=== PATIENT | male | born 1935 | race Caucasian/White ===

== ENCOUNTER → 2023-05-22 12:49 | Outpatient (REF) | payer MEDICARE, OTHER, SELFPAY | LOC: HWRCS 12:49 | PROVIDERS: ATTENDING PHYSICIAN Nuclear Medicine Nuclear Cardiology; FAMILY PHYSICIAN Internal Medicine | DX: I48.0 Paroxysmal atrial fibrillation (principal); I25.2 Old myocardial infarction; I42.8 Other cardiomyopathies | CPT/HCPCS: 93306 ==

== ENCOUNTER 2023-08-25 18:37 | Inpatient (IN) | payer OTHER, SELFPAY ==
[2023-08-25 14:41] VITALS: BP 145/82
[2023-08-25 15:16] VITALS: BP 133/65
[2023-08-25 15:44] LABS: % Basophils 0.4 % (0-2); % Eosinophils 1.5 % (0-6); % Immature Granulocytes 0.4 % (0-0.5); % Lymphocytes 8.6 % (20.5-51.1); % Monocytes 12.3 % (1.7-9.3); % Neutrophils 76.8 % (42.2-75.2); Absolute Eosinophils 0.1 10^3/uL (0-0.7); Absolute Lymphocytes 0.6 10^3/uL (1.2-3.4); Absolute Monocytes 0.9 10^3/uL (0.1-0.6); Absolute Neutrophils 5.5 10^3/uL (1.4-6.5); Hematocrit 38.9 % (39.0-52.0); Hemoglobin 13.8 g/dL (13.0-18.0); Mean Corp Hgb Conc. 35.5 g/dL (33.0-37.0); Mean Corpuscular Hgb 32.5 pg (27.0-31.0); Mean Corpuscular Volume 91.7 fL (80.0-94.0); Mean Platelet Volume 9.3 fL (7.4-10.4); Nucleated Red Blood Cells % 0 % (-); Platelet Count 253 10^3/uL (130-400); Red Blood Cell Count 4.24 10^6/uL (4.70-6.10); Red Cell Dist. Width 14.5 % (11.5-14.5); White Blood Cell Count 7.2 10^3/uL (4.8-10.8)
[2023-08-25 16:03] VITALS: BP 141/78
[2023-08-25 16:03] LABS: ALT (SGPT) 28 U/L (0-50); AST (SGOT) 37 U/L (17-59); Alkaline Phosphatase 72 U/L (38-126); Blood Urea Nitrogen 9 mg/dl (9-20); Calcium 9.8 mg/dl (8.4-10.2); Carbon Dioxide 29 mmol/L (22-30); Chloride 94 mmol/L (98-107); Glucose 97 mg/dl (70-99); Potassium 4.7 mmol/L (3.5-5.1); Sodium 130 mmol/L (135-145); Total Bilirubin 1.1 mg/dl (0.2-1.3); Total Protein 6.5 g/dl (6.3-8.2); eGFR > 60.00
--- NOTE | 2023-08-25 16:54 | ED.GENMED ---
History of Present Illness
General
Chief Complaint: Fall
Source: patient, records and spouse
Exam Limitations: none
Time Seen by Provider: 08/25/23 15:18
Nursing documentation reviewed up to this point in time: agreed with
History of Present Illness
History of Present Illness:
Patient 87-year-old male who presents to the emergency department with a inability to walk since he fell approximately 6 days ago and then fell again 2 days ago. Patient was found on the floor 2 days ago. Patient did strike his head but did does
not remember if he had a loss of consciousness. Patient denies syncope. Patient is able to stand with assistance but is unable to walk. Patient denies fever or chills. Patient admits to swelling and redness of his lower extremities which is new.
Patient denies any chest pain, shortness of breath or palpitations. Patient denies any GI or symptoms.
Past History
Past History
ED Past Medical History: COPD, GERD, [place] and Other (PNA)
ED Past Surgical History: Other (Hernia)
Social History
Tobacco: Smoker
Alcohol: Occasional
Drug: None
Personal:
Living: with family
Employment: Retired
Review of Systems
Review of Systems
All Other Systems: ROS reviewed and negative except as documented in HPI and ROS
Constitutional: Reports fatigue; Denies fever or chills
EENT: Reports no symptoms
Respiratory: Reports no symptoms
Cardiac: Reports no symptoms
ABD/GI: Reports no symptoms
: Reports no symptoms
Musculoskeletal: Reports joint pain (Left hip pain)
Skin: Reports other (Redness of the lower legs bilaterally)
Neurological: Reports no symptoms
Hematologic/Lymphatic: Reports no symptoms
Phy Exam
Physical Exam
Physical Exam:
Physical Exam
General: No apparent distress, alert and appropriate, well nourished, well hydrated
HENT: Normocephalic and nontender, supple with no lymphadenopathy, no thyromegaly
Eyes: Clear sclera, conjuctiva without injection
Heart: Regular rhythm and rate. No S3, S4. No murmur. No NVD
Lungs: No respiratory distress, no stridor, lung sounds clear and equal bilaterally, chest wall symmetrical and nontender
Abdomen: Soft, nontender, no organomegaly, no CVA tenderness, BS good
Neuro: Alert and oriented x 3, CN II - XII intact, no motor focality
Skin: Patient has extensive nail fungus, erythema of the lower legs
Psychiatric: well kept. interactive and cooperative
Extremities: No cyanosis. Erythema of the lower legs from mid calf down bilaterally with +1-2 pitting edema. Patient has significant onychomycosis on both feet. Tenderness about the left hip that increases with range of
motion
Musculoskeletal: Mild diffuse cervical spine tenderness. Noes thoracic or lumbar spine tenderness
Course
Orders/Labs/Results
Orders:
Orders
08/25/23 14:46
CT Head W/o Iv Contrast Urgent
Comment:
Reason For Exam: head inury on Xarelto
08/25/23 14:47
EKG [Electrocardiogram (*1)] Urgent
Reason for Study: Shortness of Breath
08/25/23 14:48
EKG- Treatment ONCE
08/25/23 15:33
CBC/With Diff [Complete Blood Count/With Diff] Urgent
CMP [Comprehensive Metabolic Panel] Urgent
08/25/23 15:40
CT Cervical Spine W/o Iv Contr Urgent
Comment:
Reason For Exam: fall tender c spine
Thiamine Injection 100 mg IV NOW STA
Hip, Left 2-3 Views [CR Hip - LT w/wo Pel 2-3 Vw*] Urgent
Comment:
Reason For Exam: fell with tender
Include a pelvis x-ray?: Yes
Abnormal Lab Results
08/25/23
15:33
RBC 4.24 L 10^6/uL
(4.70-6.10)
Hct 38.9 L %
(39.0-52.0)
MCH 32.5 H pg
(27.0-31.0)
Absolute Lymphs (auto) 0.6 L 10^3/uL
(1.2-3.4)
Absolute Monos (auto) 0.9 H 10^3/uL
(0.1-0.6)
Neutrophils % 76.8 H %
(42.2-75.2)
Lymphocytes % 8.6 L %
(20.5-51.1)
Monocytes % 12.3 H %
(1.7-9.3)
Sodium 130 L mmol/L
(135-145)
Chloride 94 L mmol/L
(98-107)
Creatinine 0.6 L mg/dL
(0.7-1.3)
08/25/23 15:33
08/25/23 15:33
Vital Signs
Initial and Last Documented VS:
Initial Vital Signs
Temp Pulse Resp BP Pulse Ox
97.9 F 85 16 145/82 97
08/25/23 14:41 08/25/23 14:41 08/25/23 14:41 08/25/23 14:41 08/25/23 14:41
Last Documented Vital Signs
Temp Pulse Resp BP Pulse Ox
97.9 F 84 21 141/78 97
08/25/23 14:41 08/25/23 16:15 08/25/23 16:15 08/25/23 16:03 08/25/23 16:04
*Radiology
Radiology exam reviewed: preliminary read by ED provider (No hip or pelvic fracture) and radiology read reviewed (CT of the brain and neck unremarkable.)
*Pulse Oximetry
Patient hypoxic: no
*EKG
Interpreted by ED Provider?: Yes
EKG Intrepretation Date: 08/25/23
EKG Intrepretation Time: 17:02
Interpretation: abnormal
Comparison EKG: changes noted
Heart Rate: 82
Rate: normal
Rhythm: sinus
[place]: normal axis
Interval: normal interval
QRS Pattern: right bundle branch block
Ischemia: non-specific ST changes
*Pastoral Assistant Interpretation
Rate: normal
Interpretation: normal
Heart Rate: 80
Rhythm: sinus
*Critical Care Note
Total Time (30-74mins, 75-104mins- exclusive of procedures): Not Applicable
Update Note
Update Note:
Patient is unable to stand on his own and is nonambulatory. Patient has worsening cellulitis of the lower extremities. Patient will be admitted.
ED Attending Note
-
Portions of this chart may have been created with voice recognition software.� Occasional wrong word or��sound alike� substitutions may have occurred due to the inherent limitations of voice recognition software.
Discharge Plan
Departure
Patient Disposition: Admit
Date of Disposition: 08/25/23
Time of Disposition: 17:41
Admit to: Med/Surg
Admit to doctor: Hospitalist
Presentation/result/management discussed w/ accepting MD/DO: Hospitalist
Patient with high blood pressure during this ER visit?: No
Condition: Fair
Covid-19: Not Applicable
Discharge Problem:
Cellulitis, Onychomycosis, Ambulatory dysfunction
Prescriptions:
No Action
albuterol sulfate 90 mcg/actuation Hfa Aerosol Inhaler
2 puff INHALATION R Q6HPRN PRN (Reason: sob/wheezing)
multivitamin Tablet
1 tab PO DAILYPRN PRN (Reason: supplement)
ipratropium-albuterol 0.5 mg-3 mg(2.5 mg base)/3 mL solution for nebulization
3 ml INHALATION R Q6HPRN PRN (Reason: sob/wheezing)
trazodone 50 mg tablet
50 mg PO HS
escitalopram oxalate 10 mg tablet
10 mg PO HS
cholecalciferol (vitamin D3) [Vitamin D3] 25 mcg (1,000 unit) Tablet
25 mcg PO DAILY
Anoro Ellipta 62.5-25 mcg/actuation blister with device
1 inh INHALATION R HS
Xarelto 20 mg Tablet
20 mg PO QPM 30 Days Qty: 30 0RF
tamsulosin 0.4 mg Capsule
0.4 mg PO DAILY 30 Days Qty: 30 0RF
Referrals:
Zeina Hackett DO [Family Provider] -
Discharge Date and Time
Print Language: PANAMANIAN
[2023-08-25 17:00] VITALS: BP 135/73
--- NOTE | 2023-08-25 17:46 | HPS.HSE ---
Family Physician
-
Family Physician: Zeina Hackett DO
Chief Complaint
-
Generalized weakness, inability to walk
History of Present Illness
HPI: 87-year-old male with PMH A-Fib, COPD, GERD; who presented with generalized weakness/non-ambulation.
[place] and [place] 2 days prior to [place]. Patient was found on the floor 2 days ago. Apparently patient did strike his head but did does not remember if he had a loss of consciousness.
Unclear if this was syncope or not.
Patient also complaining of acute on chronic intermittent diarrhea. He states that he has chronic intermittent diarrhea, this acute episode started about a week ago.
He denies any fever/chills, chest pain, shortness of breath, abdominal pain etc.
He admits to smoking 1 pack/day for the last 65 years, and that he also drinks scotch, last drink was the day prior to admission.
On exam, he has lower extremity swelling and erythema, left greater than right.
Medical History
Past Medical History
Past Medical History: Reports CAD, COPD and GERD
Past Surgical History: Reports Other (hernia repair )
Additional Past Surgical History:
Hernia repair
Social History
Tobacco: Smoker (1 pack a day for 65 years)
Alcohol: Occasional
Drug: None
Living: With Family
Family History
Family History: Not pertinent
Allergies / Home Medications
Allergies reflects when Allergies were last updated in [facility].
Home Medications with original date entered in [facility]
Allergy/Medication List:
Allergies
Allergy/AdvReac Type Severity Reaction Status Date / Time
No Known Allergies Allergy Verified 08/25/23 14:40
Home Medications
albuterol sulfate 90 mcg/actuation aerosol inhaler 2 puff inhalation R Q6HPRN PRN sob/wheezing 10/25/22
cholecalciferol (vitamin D3) 25 mcg (1,000 unit) tablet (Vitamin D3) 25 mcg PO DAILY Supplement 10/25/22
escitalopram oxalate 10 mg tablet 10 mg PO HS Depression 10/25/22
ipratropium 0.5 mg-albuterol 3 mg (2.5 mg base)/3 mL nebulization soln 3 ml inhalation R Q6HPRN PRN sob/wheezing 10/25/22
multivitamin 1 tab PO DAILYPRN PRN supplement 10/25/22
trazodone 50 mg tablet 50 mg PO HS Mental Health/Anxiety 10/25/22
umeclidinium 62.5 mcg-vilanterol 25 mcg/actuation powdr for inhalation (Anoro Ellipta) 1 inh inhalation R HS Lung/Breathing Issues 10/25/22
rivaroxaban 20 mg tablet (Xarelto) 20 mg PO QPM 30 days #30 tabs 10/27/22
tamsulosin 0.4 mg capsule 0.4 mg PO DAILY 30 days #30 caps 10/27/22
Review of Systems
-
Constitutional: Reports See HPI and Other (Generalized weakness)
Abdomen/GI: Reports See HPI and Diarrhea; Denies Abdominal Pain
Skin: Reports See HPI
Physical Exam
Vital Signs
Vital Signs
Temp Pulse Resp BP Pulse Ox
36.6 C 84 21 141/78 97
08/25/23 14:41 08/25/23 16:15 08/25/23 16:15 08/25/23 16:03 08/25/23 16:04
Physical Exam
General: Well Developed, Well Nourished, No Apparent Distress, Conversant and Appears Chronically Ill
HEENT: NormoCephalic, Moist mucous membranes and Atraumatic
Respiratory: Clear and Non Labored Respirations; No Accessory Resp Muscle Use
Cardiac: S1/S2 and Regular Rhythm; No Murmur or Rub
GI: Soft, Non Tender, Non Distended and Normal Bowel Sounds; No Organomegaly
Rectal: Deferred by Provider
Musculoskeletal: No Clubbing, No Cyanosis, Edema, Left Lower Extremity and Edema, Right Lower Extremity
Skin: Lesions (BL LE L > R)
Neuro: Awake
Psych: Calm and Intact Judgment/Insight (somewhat)
Laboratory Results
-
08/25/23 15:33
08/25/23 15:33
Laboratory Results
Total Bilirubin 1.1 mg/dl (0.2-1.3) 08/25/23 15:33
AST 37 U/L (17-59) 08/25/23 15:33
ALT 28 U/L (0-50) 08/25/23 15:33
Alkaline Phosphatase 72 U/L (38-126) 08/25/23 15:33
Data Reviewed
-
CT Scan: Report Reviewed by me
Lab Data: Labs Reviewed by me
Impression/Plan
-
HPI: 87-year-old male with PMH A-Fib, COPD, GERD; who presented with generalized weakness/non-ambulation.
[place] and [place] 2 days prior to [place]. Patient was found on the floor 2 days ago. Apparently patient did strike his head but did does not remember if he had a loss of consciousness.
Unclear if this was syncope or not.
Patient also complaining of acute on chronic intermittent diarrhea. He states that he has chronic intermittent diarrhea, this acute episode started about a week ago.
He denies any fever/chills, chest pain, shortness of breath, abdominal pain etc.
He admits to smoking 1 pack/day for the last 65 years, and that he also drinks scotch, last drink was the day prior to admission.
On exam, he has lower extremity swelling and erythema, left greater than right.
A/P:
# Weakness with ambulatory dysfunction, differential diagnosis include syncope vs generalized weakness from clinical deconditioning due to chronic alcohol use
CT head showed no acute intracranial abnormalities.
Cervical spine No findings to suggest recent cervical spine fracture.
Hip XR No findings to confirm recent cortical fracture.
Check echo for syncope workup
Check orthostatic vital sign
Monitor on telemetry
Check TSH reflex FT4
Check UA reflex urine culture
PT OT eval
# Acute on chronic intermittent diarrhea
Check stool studies including culture, C. difficile, norovirus
# Mild Bilateral lower extremity cellulitis, L > R
Check bilateral lower extremity ultrasound due to swelling
Wound care eval
Continue Ancef
# Hyponatremia, likely due to chronic alcohol use/diarrhea
Monitor sodium level
# Paroxysmal A-fib
Continue prior to admission Xarelto
# COPD, stable
# GERD
# Nicotine dependence
Provide nicotine patch
# Alcohol abuse
Monitor with MSAS protocol
# History of anxiety
Continue with Lexapro
DVT ppx: Prior to admission Xarelto
FC
[2023-08-25 18:57] LABS: TSH Reflex To Free T4 0.56 uIU/ml (0.47-4.68)
[2023-08-25 19:17] LABS: Urine Albumin Negative (Neg - Trace); Urine Bilirubin Negative (Negative); Urine Character Clear (Clear); Urine Color Yellow; Urine Glucose Negative (Negative); Urine Ketone Negative (Negative); Urine Leukocyte Negative (Negative); Urine Nitrite Negative (Negative); Urine Occult Blood Negative (Negative); Urine Urobilinogen Negative (Neg - 1+); Urine pH 6.5 (5.0-9.0)
[2023-08-25] MEDS: THIAMINE INJECTION 100 MG IV (20:21)
[2023-08-25] MEDS: ANCEF 5 IV (20:24)
--- NOTE | 2023-08-25 20:57 | PTCARENOTE ---
Pt transported to floor from ED via stretcher. Pt was a snout puller from stretcher to bed, unable to ambulate. Vitals obtained and stable. Oriented to room, call groves within reach will continue to monitor.
[2023-08-25 20:59] VITALS: BP 152/84; BMI 22.3
[2023-08-25] MEDS: SPIRIVA RESPIMAT 2.5 MCG INH (21:56)
[2023-08-25] MEDS: ProAIR HFA INHALER 2 PUFF INH (21:56)
[2023-08-25] MEDS: STRIVERDI RESPIMAT INH (21:56)
[2023-08-25] MEDS: DESYREL 50 MG PO (22:05)
[2023-08-25] MEDS: LEXAPRO 10 MG PO (22:06)
[2023-08-25 23:00] VITALS: BP 138/65; BP 86/58; PULSE 81
[2023-08-26] VITALS (11 sets, daily range): BP systolic 111–146; BP diastolic 55–87; PULSE 80–91
[2023-08-26] MEDS: ANCEF 5 IV ×3 (02:55→17:32)
[2023-08-26 06:44] LABS: Hematocrit 34.6 % (39.0-52.0); Hemoglobin 12.2 g/dL (13.0-18.0); Mean Corp Hgb Conc. 35.3 g/dL (33.0-37.0); Mean Corpuscular Hgb 32.1 pg (27.0-31.0); Mean Corpuscular Volume 91.1 fL (80.0-94.0); Mean Platelet Volume 9.5 fL (7.4-10.4); Platelet Count 258 10^3/uL (130-400); Red Cell Dist. Width 14.2 % (11.5-14.5); White Blood Cell Count 6.7 10^3/uL (4.8-10.8)
[2023-08-26 07:11] LABS: Blood Urea Nitrogen 9 mg/dl (9-20); Calcium 8.8 mg/dl (8.4-10.2); Carbon Dioxide 30 mmol/L (22-30); Chloride 95 mmol/L (98-107); Estimated Creatinine Clearance 88 ml/min; Glucose 89 mg/dl (70-99); Magnesium 1.9 mg/dl (1.6-2.3); Potassium 4.5 mmol/L (3.5-5.1); Sodium 129 mmol/L (135-145); eGFR > 60.00
[2023-08-26] MEDS: SPIRIVA RESPIMAT 2.5 MCG 2 PUFF INH (08:08)
[2023-08-26] MEDS: STRIVERDI RESPIMAT 2 PUFF INH (08:09)
[2023-08-26] MEDS: VITAMIN D3 (cholecalciferol) 25 MCG PO (08:40)
[2023-08-26] MEDS: FOLVITE 1 MG PO (08:40)
[2023-08-26] MEDS: THIAMINE INJECTION 200 MG IV ×2 (08:40→22:08)
[2023-08-26] MEDS: NICODERM TRANSDERMAL 14 MG TRANSDERM (08:40)
[2023-08-26] MEDS: FLOMAX 0.4 MG PO (08:41)
--- NOTE | 2023-08-26 10:24 | W.PN.HOSP.TC ---
Addendum entered and electronically signed by Stefany Garcia MD 08/26/23 15:03:
ordered repeat L hip XR given pt c/o pain with working with PT (pain in supine abduction).
Consider CT Hip if XR remain negative
Original Note:
Today's Communication/Plan
-
see A/P
Assessment / Plan
Assessment / Plan
HPI: 87-year-old male with PMH A-Fib, COPD, GERD; who presented with generalized weakness/non-ambulation.
[place] and again 2 days prior to admission. Patient was found on the floor 2 days ago. Apparently patient did strike his head but did does not remember if he had a loss of consciousness.
Unclear if this was syncope or not.
Patient also complaining of acute on chronic intermittent diarrhea. He states that he has chronic intermittent diarrhea, this acute episode started about a week ago.
He denies any fever/chills, chest pain, shortness of breath, abdominal pain etc.
He admits to smoking 1 pack/day for the last 65 years, and that he also drinks scotch, last drink was the day prior to admission.
On exam, he has lower extremity swelling and erythema, left greater than right.
A/P:
# Weakness with ambulatory dysfunction, differential diagnosis include syncope vs generalized weakness from clinical deconditioning due to chronic alcohol use and orthostatic hypotension
CT head showed no acute intracranial abnormalities.
Cervical spine No findings to suggest recent cervical spine fracture.
Hip XR No findings to confirm recent cortical fracture.
Orthostatic VS positive for orthostatic hypotension , start compression therapy with DOROTHY wrap
Check echo for possible syncope workup
Monitor on telemetry, no arrhythmia noted
TSH 0.56, UA negative
PT OT eval
# Acute on chronic intermittent diarrhea
Follow stool studies including culture, C. difficile, norovirus
# Mild Bilateral lower extremity cellulitis, L > R
bilateral lower extremity ultrasound negative for DVT
Wound care eval
Continue Ancef
# Hyponatremia, likely due to chronic alcohol use/diarrhea
Monitor sodium level
# Paroxysmal A-fib
Continue prior to admission Xarelto
# COPD, stable
# GERD
# Nicotine dependence
nicotine patch
# Alcohol abuse
Monitor with MSAS protocol
# History of anxiety
Continue with Lexapro
DVT ppx: Prior to admission Xarelto
FC
Anticipated Discharge: 24 - 48 hours
Subjective/Interval History
-
Date of Service: August 26, 2023
Objective Data
-
Labs:
Laboratory Results
08/26/23
06:04
WBC 6.7
Hgb 12.2 L
Hct 34.6 L
Plt Count 258
Sodium 129 L
Potassium 4.5
Chloride 95 L
Carbon Dioxide 30
BUN 9
Creatinine 0.6 L
Glucose 89
Calcium 8.8
Vital Signs:
Vital Signs
Temp Pulse Resp BP Pulse Ox
36.6 C 72 18 141/76 96
08/26/23 07:00 08/26/23 08:17 08/26/23 08:17 08/26/23 07:00 08/26/23 08:17
I&O
08/25/23 08/26/23 08/27/23
06:59 06:59 06:59
Intake Total 0 / 0
Output Total 450 / 450
Balance -450 / -450
Review of Systems
-
Constitutional: Reports Weakness
Physical Exam
-
General: Well Developed, No Apparent Distress, Comfortable, Conversant and Appears Chronically Ill
HEENT: Normocephalic, Atraumatic and Moist Mucous Membranes
Respiratory: Clear to Auscultation and Non Labored Respirations; Negative Accessory Resp Muscle Use
Cardiac: Regular Rhythm and S1/S2
GI: Soft, Nontender, Nondistended and Normal Bowel Sounds; Negative Organomegaly
Rectal: Deferred by Provider
Genito-urinary: [place]
Musculoskeletal: No Clubbing, No Cyanosis, Edema, Right Lower Extrem and Edema, Left Lower Extrem
Neuro: Awake
Psych: Calm and Intact Judgement/Insight (somewhat)
Data Reviewed
-
CT Scan: Report Reviewed by me
Labs: Labs Reviewed by me
--- NOTE | 2023-08-26 11:35 | PTCARENOTE ---
patient states he is unable to stand. Will await for PT to get ortho VS.
--- NOTE | 2023-08-26 13:30 | CM ---
Reviewed chart. Received consult for etoh/substance counseling. Met with patient to obtain information for assessment. Patient stated that he lives with his and son in an apartment with a full flight of steps to enter. Patient did admit to some
difficulty with steps. He has no elevator access. He has a cane to assist with his ambulation. He also has a walker. His and son assist patient with his ADLs, personal care, dressing and bathing. Patient's daughter and son assist with household
chores, cooking, cleaning and laundry. Patient does not drive however both his children do and are able to take patient to his appointments and assist with the shopping.
Patient has had VN services in the past through (most recently) [facility] but he has had [facility] as well.
Patient denied any DME except for the cane and walker.
He has a prescription plan and uses, [facility] in [place] for all of his medications.
His PCP is, Zeina Hackett.
Patient declined taking resources for substance abuse or information regarding counseling. He stated that he does drink, however not daily and most often he has just one drink. Not currently going through any withdrawal.
Patient stated that he would like to return home when he is medically cleared for discharge with VN through . Will need to defer to rehab as far as indication. Patient has been to [facility] in the past and did like it.
Plan: Case management will continue to follow and assist with discharge planning. VN vrs SNF.
[2023-08-26] MEDS: TYLENOL 650 MG PO (17:31)
[2023-08-26] MEDS: XARELTO 20 MG PO (17:31)
[2023-08-26] MEDS: LEXAPRO 10 MG PO (22:07)
[2023-08-26] MEDS: DESYREL 50 MG PO (22:08)
[2023-08-26] MEDS: ULTRAM 25 MG PO (22:08)
[2023-08-27] MEDS: ANCEF 5 IV ×3 (01:54→17:04)
[2023-08-27 03:40] VITALS: BP 132/79
[2023-08-27 05:49] VITALS: BMI 21.9
[2023-08-27 06:54] LABS: Hematocrit 37.6 % (39.0-52.0); Hemoglobin 12.9 g/dL (13.0-18.0); Mean Corp Hgb Conc. 34.3 g/dL (33.0-37.0); Mean Corpuscular Hgb 31.9 pg (27.0-31.0); Mean Corpuscular Volume 93.1 fL (80.0-94.0); Mean Platelet Volume 9.2 fL (7.4-10.4); Platelet Count 260 10^3/uL (130-400); Red Blood Cell Count 4.04 10^6/uL (4.70-6.10); Red Cell Dist. Width 14.6 % (11.5-14.5); White Blood Cell Count 6.1 10^3/uL (4.8-10.8)
[2023-08-27 07:18] LABS: Blood Urea Nitrogen 12 mg/dl (9-20); Calcium 8.9 mg/dl (8.4-10.2); Carbon Dioxide 32 mmol/L (22-30); Chloride 97 mmol/L (98-107); Estimated Creatinine Clearance 74 ml/min; Glucose 79 mg/dl (70-99); Potassium 4.4 mmol/L (3.5-5.1); Sodium 131 mmol/L (135-145); eGFR > 60.00
--- NOTE | 2023-08-27 07:47 | W.PN.HOSP.TC ---
Today's Communication/Plan
-
CT of the left hip. Continue IV antibiotics.
Assessment / Plan
Assessment / Plan
Physical exam:
General: Acute on chronically ill
HEENT: Normocephalic, Atraumatic and Moist Mucous Membranes
Respiratory: Clear to Auscultation; Negative Wheezes, Rales or Rhonchi
Cardiac: Regular Rhythm and S1/S2
GI: Soft, Nontender and Nondistended
Musculoskeletal: Pain left hip area and groin area. Decreased range of motion of the left hip. No Clubbing, No Cyanosis. Bilateral edema and erythema.
Neuro: Awake, Alert and Oriented
Psych: Calm
A/P:
Left hip fracture:
CT done today and resulted consistent with left acute minimally displaced fracture of the greater trochanteric hip.
Hold Xarelto until evaluated by Ortho
Orthopedic consult
Cellulitis bilateral lower extremity L>R:
Continue IV cefazolin
Fall versus ?syncope:
Continue cardiac monitoring
Cardio consult
Chronic systolic diastolic CHF:
Last echocardiogram in April showed EF 40 to 45% and stage I diastolic dysfunction
Repeated echo pending
Not on diuretics currently.
Cardio eval pending
Paroxysmal A-fib:
Not on rate control agents
On anticoagulation but currently on hold
Cardiac monitoring
COPD:
On Spiriva and Striverdi
Albuterol as needed
Acute diarrhea:
Negative C. difficile
No norovirus or Shiga toxin
Salmonella Campylobacter Shigella pending
Hyponatremia:
Start fluid restriction
131 today
Anemia:
Hemoglobin 12.9 today
Continue to monitor
Depression anxiety:
Continue escitalopram 10 mg p.o. nightly
Continue trazodone 50 mg p.o. nightly
BPH:
Continue Flomax 0.4 mg daily
Alcohol use disorder:
Continue MSA protocol
Continue thiamine and folate
Nicotine use disorder:
Continue nicotine patch
DVT prophylaxis:
Hold Xarelto and start SCDs
CODE STATUS:
Full code
Time spent 53 minutes
Anticipated Discharge: > 48 hours
Subjective/Interval History
-
Date of Service: August 27, 2023
Patient complains of left groin and hip pain. No shortness of breath or chest pain. Afebrile
Objective Data
-
Labs:
Laboratory Results
08/27/23
06:09
WBC 6.1
Hgb 12.9 L
Hct 37.6 L
Plt Count 260
Sodium 131 L
Potassium 4.4
Chloride 97 L
Carbon Dioxide 32 H
BUN 12
Creatinine 0.7
Glucose 79
Calcium 8.9
Vital Signs:
Vital Signs
Temp Pulse Resp BP Pulse Ox
97.9 F 83 17 132/79 95
08/27/23 03:40 08/27/23 03:40 08/27/23 03:40 08/27/23 03:40 08/27/23 03:40
I&O
08/26/23 08/27/23 08/28/23
06:59 06:59 06:59
Intake Total 0 / 0 1410 / 1410
Output Total 450 / 450 850 / 850
Balance -450 / -450 560 / 560
[2023-08-27] MEDS: NICODERM TRANSDERMAL 14 MG TRANSDERM (07:51)
[2023-08-27] MEDS: VITAMIN D3 (cholecalciferol) 25 MCG PO (07:53)
[2023-08-27] MEDS: FLOMAX 0.4 MG PO (07:53)
[2023-08-27] MEDS: THIAMINE INJECTION 200 MG IV ×2 (07:54→21:30)
[2023-08-27] MEDS: FOLVITE 1 MG PO (07:54)
[2023-08-27 07:55] VITALS: BP 136/63
[2023-08-27] MEDS: SPIRIVA RESPIMAT 2.5 MCG 2 PUFF INH (07:57)
[2023-08-27] MEDS: STRIVERDI RESPIMAT 2 PUFF INH (07:57)
[2023-08-27] MEDS: DUONEB 3 ML INH (08:07)
--- NOTE | 2023-08-27 08:11 | RESPNOTE ---
albuterol inhaler found in patient's bed this morning. asked if patient administered himself doses of inhaler, patient states he did not today but did admit to using at some point yesterday afternoon. explained to patient DH policy regarding home
medication and expressed that patient has active order for PRN nebulizers/ inhalers should he need. patient agreeable. patient states he will pack away inhaler. RN updated.
--- NOTE | 2023-08-27 09:57 | WOUNDNOTE ---
L CALF/ANKLE (MEDIAL)
--- NOTE | 2023-08-27 09:57 | WOUNDNOTE ---
L CALF (LOWER MEDIAL)
--- NOTE | 2023-08-27 09:58 | WOUNDNOTE ---
R CALF (MEDIAL ANTERIOR)
--- NOTE | 2023-08-27 09:59 | WOUNDNOTE ---
[facility] RN note: Patient admitted with weakness, LE edema and erythema (L>R), falls, found on floor 2 days prior to admission. Patient lives in an apartment with his and son. He uses a walker.
See H&P for complete history.
PMH: a fib, COPD, smoker, drinks 1 scotch a day, CAD, hernia repair. Patient on Xarelto.
Wound Location and type/assessment: Patient admitted with: small dermal LLE pink ulcer suspect r/t abrasion and lower leg edema. Scabbed small abrasions on RLE. Toenails grossly long with matter between toes suspect r/t lack of hygiene. +1 LE
edema. +Pedal pulses heard via portable Doppler (R>L). LE venous Doppler negative for DVT. Sacral crease red and intact. Mild perineal MASD. Patient incontinent of soft brown stool.
Appetite: good.
Pressure redistribution devices in place: [employer] Accumax. Patient moves slowly in bed. He is sitting on the side of the bed.
Plan: Joy care given. Silicone border foam applied LLE. Bilateral Jose wraps applied as ordered. Air chair cushion given. Instructed patient to make appointment with a oracle business intelligence developer for toenail cutting. Patient verbalized understanding. Instructed
pressure injury prevention measures.
Will confirm orders with Dr. Wynne and discussed with JOSSY Rogers.
Care plan to be updated, will sign off. Call if needed.
Note to case management of equipment requested for discharge: VN if goes home.
--- NOTE | 2023-08-27 12:51 | CON.ORTHO ---
Consultation
-
Date/Time Consultation Requested: September 18/1251
Date/Time Consultation Performed: September 18/1252
Requesting Provider: Ricci
Performing Provider: Kenji for [facility]
Reason for Consultation: Left Hip Fx
Consultation - Orthopedics
History
Dictation#[id number]
Was asked to see this very pleasant 87 y/o white male with a PMH of COPD, GERD, VT, who takes Xarelto, who presented through the ED on 25 August 2023 after a reported fall 6 days prior. Apparently he then fell again on the . He was found on
the floor. He denies a prodrome, head strike, or LOC. He complains of left hip pain but x-rays were negative. He is currently being worked up. due to the continued left hip pain pelvis CT was requested where a nondisplaced LEFT greater
trochanter fracture was found. We have been requested in consultation due to this fracture
Allergies / Home Medications
Allergy/AdvReac Type Severity Reaction Status Date / Time
No Known Allergies Allergy Verified 08/25/23 14:40
�Medication �Instructions �Recorded
albuterol sulfate 90 mcg/actuation 2 puff inhalation R Q6HPRN PRN 10/25/22
aerosol inhaler sob/wheezing
cholecalciferol (vitamin D3) 25 25 mcg PO DAILY Supplement 10/25/22
mcg (1,000 unit) tablet (Vitamin
D3)
escitalopram oxalate 10 mg tablet 10 mg PO HS Depression 10/25/22
ipratropium 0.5 mg-albuterol 3 mg 3 ml inhalation R Q6HPRN PRN 10/25/22
(2.5 mg base)/3 mL nebulization sob/wheezing
soln
multivitamin 1 tab PO DAILYPRN PRN supplement 10/25/22
trazodone 50 mg tablet 50 mg PO HS Mental Health/Anxiety 10/25/22
umeclidinium 62.5 mcg-vilanterol 1 inh inhalation R HS 10/25/22
25 mcg/actuation powdr for Lung/Breathing Issues
inhalation (Anoro Ellipta)
rivaroxaban 20 mg tablet (Xarelto) 20 mg PO QPM 30 days #30 tabs 10/27/22
tamsulosin 0.4 mg capsule 0.4 mg PO DAILY 30 days #30 caps 10/27/22
Vital Signs / Lab Results
Temp Pulse Resp BP Pulse Ox
97.7 F 80 18 136/63 95
08/27/23 07:55 08/27/23 08:10 08/27/23 08:10 08/27/23 07:55 08/27/23 08:10
08/27/23 06:09
08/27/23 06:09
Assessment / Plan
PE: Afeb. Seated at the bedside. Left hip skin is intact. LL equal. Focal pain over the greater trochanter. Ranging of the hip was mildly painful for lateral hip pain. Calf soft and nontender. Neurovascularly intact.
Xrays: Negative for left hip Fx
CT: Nondisplaced fracture of the LEFT greater trochanter
Impression: Nondisplaced LEFT greater trochanter fracture
Plan: I had a lengthy bedside discussion with the patient. Fortunately his left hip fracture can be managed nonoperatively. He may be WBAT on a walker. PT consult has been placed. No active or passive abduction or adduction. disposition per
CM. would recommend an outpatient orthopedic follow-up in 2 to 3 weeks for repeat x-rays and clinical exam. Orthopedics to sign off for now. Please reengage with any pertinent questions as needed
--- NOTE | 2023-08-27 13:01 | CON.CAR ---
Addendum entered and electronically signed by Amish Goss DO 08/27/23 15:55:
I saw and examined the patient.
The Laborer's note was reviewed and I agree with the note.
Comment:
Plan:
Nonoperative management of Nondisplaced L greater trochanter fracture noted.
PT/OT
He remains in sinus
Discussed outpt monitor to assess AFib burden
Discussed anticoagulation including the bleeding risks versus stroke risk. After discussion, he would like to continue. He understands that if he has recurrent falls and he wants to continue with aggressive care, that he may be considered for
Watchman implant. We also discussed that if he has recurrent falls that we may need to stop his anticoagulation. He understands risks and benefits and like to continue anticoagulation at this time.
-Orthostatic VS negative. No arrhythmias noted on telemetry. Continue to follow while admitted.
Echo reviewed with patient. Known CM with EF 40-45% by echo 08/26. He has h/o SD in the past without PCI. He has declined ischemic evaluations.
Continue abx per primary service for cellulitis.
Will arrange cardiac followup.
Original Note:
Consultation
Consultation Request
Date/Time Consultation Requested:
Date/Time Consultation Performed: 08/27/2023
Requesting Provider: Dr. Wynne
Performing Provider: Dr. Goss
Reason for Consultation: Fall, concern for syncope
Medical History
-
History of Present Illness:
HPI: Yomi is an 87 year old male with PMH of Paroxysmal atrial fibrillation on chronic Xarelto, cardiomyopathy, prior SD, hypertension, hyperlipidemia, COPD, and GERD who presented to [facility] after multiple falls over the past few weeks. He denies any
dizziness or lightheadedness leading up to the falls. He states he feels tired and his legs will just give out. He does not believe he has had any syncope, however is not 100% certain. After his most recent fall, he reports he had L hip pain and was
unable to bear weight on that leg, prompting ER evaluation. In ER, he had xray of hip which was negative for fracture, however he continued to have hip pain and was unable to bear weight, so pelvis CT was ordered and did show acute minimally
displaced fracture of the greater trochanter of the L hip. Orthopedics saw patient and plan was for medical/non-operative management. Cardiology consulted for evaluation of possible syncope. He reports he is feeling overall well currently and has no
complaints. He does not feel when he has atrial fibrillation, however denies any rapid heart rates or palpitations. No afib has been noted on telemetry.
PMH:
Paroxysmal atrial fibrillation
Chronic Xarelto anticoagulation
Cardiomyopathy
CAD w/ SD in 1985, managed medically
COPD
Hypertension
Hyperlipidemia
GERD
Tobacco abuse
Past Medical History
Past Medical History: Other (In HPI)
Past Surgical History: Other (hernia repair)
Social History
Tobacco: Smoker (0.5-1PPD)
Alcohol: Occasional (2 scotch drinks most days)
Drug: None
Personal:
Living: With Family
Employment: Retired
Family History
Family History: CAD
Allergies / Home Medications
Allergy/AdvReac Type Severity Reaction Status Date / Time
No Known Allergies Allergy Verified 08/25/23 14:40
�Medication �Instructions �Recorded �Confirmed �Type
albuterol sulfate 90 mcg/actuation 2 puff inhalation R Q6HPRN PRN 10/25/22 08/25/23 History
aerosol inhaler sob/wheezing
cholecalciferol (vitamin D3) 25 25 mcg PO DAILY Supplement 10/25/22 08/25/23 History
mcg (1,000 unit) tablet (Vitamin
D3)
escitalopram oxalate 10 mg tablet 10 mg PO HS Depression 10/25/22 08/25/23 History
ipratropium 0.5 mg-albuterol 3 mg 3 ml inhalation R Q6HPRN PRN 10/25/22 08/25/23 History
(2.5 mg base)/3 mL nebulization sob/wheezing
soln
multivitamin 1 tab PO DAILYPRN PRN supplement 10/25/22 08/25/23 History
trazodone 50 mg tablet 50 mg PO HS Mental Health/Anxiety 10/25/22 08/25/23 History
umeclidinium 62.5 mcg-vilanterol 1 inh inhalation R HS 10/25/22 08/25/23 History
25 mcg/actuation powdr for Lung/Breathing Issues
inhalation (Anoro Ellipta)
rivaroxaban 20 mg tablet (Xarelto) 20 mg PO QPM 30 days #30 tabs 10/27/22 08/25/23 Rx
tamsulosin 0.4 mg capsule 0.4 mg PO DAILY 30 days #30 caps 10/27/22 08/25/23 Rx
Review of Systems
-
History Source: Patient
All other systems: Negative unless noted
Physical Exam
Vital Signs
Temp Pulse Resp BP Pulse Ox
97.7 F 80 18 136/63 95
08/27/23 07:55 08/27/23 08:10 08/27/23 08:10 08/27/23 07:55 08/27/23 08:10
Lab Results
08/27/23 06:09
08/27/23 06:09
Physical Exam
General: Well Developed, Well Nourished and No Apparent Distress
HEENT: Normocephalic, Anicteric and Moist Mucous Membranes
Respiratory: Wheezes and Non Labored Respirations
Cardiac: Regular Rhythm and Murmur
Musculoskeletal: No Clubbing, No Cyanosis and Edema
Skin: Warm and Dry
Neuro: AO x 3 and Nonfocal/Grossly Intact
Psych: Calm
Impression / Plan
-
PCP: Dr. Hackett
Field Marketing Representative: Dr. Goss
Impression:
Recurrent falls
L hip fracture
Hyponatremia
Cellulitis of LE
Paroxysmal atrial fibrillation
Chronic Xarelto anticoagulation
Cardiomyopathy
CAD w/ SD in 1985, managed medically
COPD
Hypertension
Hyperlipidemia
mild-moderate mitral regurgitation
GERD
Tobacco abuse
Echo 05/22/2023: EF 40-45%, stage I diastolic dysfunction, mild cLVH, mild-mod MR, aortic sclerosis without stenosis, mild AI
Echo 08/27/2023: EF 40-45%, global hypokinesis, mild-mod MR, mild with peak/mean gradients 15/7 mmHg, mild AI, mild-mod TR, estimated PAP 35-40 mmHg
Plan:
-Presented w/ L hip pain after multiple falls. Nondisplaced L greater trochanter fracture noted. Managing non-operatively per ortho. PT/OT.
-Patient denies syncope, however does admit he is not sure if he loses consciousness or not w/ falls.
-Orthostatic VS negative. No arrhythmias noted on telemetry. Continue to follow while admitted.
-EKG SR with RBBB, stable.
-Does have h/o paroxysmal atrial fibrillation. Asymptomatic with this and reports low burden.
-He is maintained on anticoagulation w/ Xarelto 20mg daily. Will continue for now, however if he continues to have falls, may need to stop AC. May consider watchman.
-Would have patient wear monitor as OP to assess afib burden.
-Known CM with EF 40-45% by echo 08/26. He has h/o SD in the past without PCI. Denies chest pain or SOB. Has declined ischemic evaluations.
-LE US negative for DVT. Continue abx per primary service for cellulitis.
-Will arrange cardiac followup.
HPI: Yomi is an 87 year old male with PMH of Paroxysmal atrial fibrillation on chronic Xarelto, cardiomyopathy, prior SD, hypertension, hyperlipidemia, COPD, and GERD who presented to [facility] after multiple falls over the past few weeks. He denies any
dizziness or lightheadedness leading up to the falls. He states he feels tired and his legs will just give out. He does not believe he has had any syncope, however is not 100% certain. After his most recent fall, he reports he had L hip pain and was
unable to bear weight on that leg, prompting ER evaluation. In ER, he had xray of hip which was negative for fracture, however he continued to have hip pain and was unable to bear weight, so pelvis CT was ordered and did show acute minimally
displaced fracture of the greater trochanter of the L hip. Orthopedics saw patient and plan was for medical/non-operative management. Cardiology consulted for evaluation of possible syncope. He reports he is feeling overall well currently and has no
complaints. He does not feel when he has atrial fibrillation, however denies any rapid heart rates or palpitations. No afib has been noted on telemetry.
Data Reviewed
-
EKG: Tracing Personally Visualized and interpreted
Radiology: Report Reviewed by me
Medical Tests (Nuc Med, Echo etc): Report Reviewed by me
Labs: Labs Reviewed by me
Old Records: Reviewed
[2023-08-27 15:57] VITALS: BP 122/82
--- NOTE | 2023-08-27 16:22 | CM ---
Case management following for d/c planning
Cont antibiotics
fracture of the greater trochanteric hip
Ortho consult
PT to evaluate after ortho consult
Plan - dependent on PT recs
[2023-08-27] MEDS: XARELTO 20 MG PO (17:04)
[2023-08-27 19:10] VITALS: BP 109/77; BP 140/72; BP 98/72; PULSE 84; PULSE 88; PULSE 92
[2023-08-27] MEDS: DESYREL 50 MG PO (21:30)
[2023-08-27] MEDS: LOTRIMIN 1% CREAM 1 APPLIC TOPICAL (21:30)
[2023-08-27] MEDS: LEXAPRO 10 MG PO (21:30)
[2023-08-27] MEDS: MELATONIN 5 MG PO (22:05)
[2023-08-27 23:40] VITALS: BP 144/72
[2023-08-28] VITALS (8 sets, daily range): BP systolic 106–146; BP diastolic 54–86; PULSE 72–76; O2SAT 94; BMI 21.8
[2023-08-28] MEDS: ANCEF 5 IV ×3 (02:11→17:25)
[2023-08-28 06:30] LABS: Hemoglobin 11.9 g/dL (13.0-18.0); Mean Corpuscular Hgb 31.5 pg (27.0-31.0); Mean Corpuscular Volume 92.6 fL (80.0-94.0); Mean Platelet Volume 9.3 fL (7.4-10.4); Platelet Count 275 10^3/uL (130-400); Red Blood Cell Count 3.78 10^6/uL (4.70-6.10); Red Cell Dist. Width 14.5 % (11.5-14.5); White Blood Cell Count 5.9 10^3/uL (4.8-10.8)
[2023-08-28 06:54] LABS: Blood Urea Nitrogen 13 mg/dl (9-20); Calcium 8.9 mg/dl (8.4-10.2); Carbon Dioxide 31 mmol/L (22-30); Chloride 98 mmol/L (98-107); Estimated Creatinine Clearance 74 ml/min; Glucose 84 mg/dl (70-99); Potassium 4.1 mmol/L (3.5-5.1); Sodium 131 mmol/L (135-145); eGFR > 60.00
[2023-08-28] MEDS: SPIRIVA RESPIMAT 2.5 MCG 2 PUFF INH (08:01)
[2023-08-28] MEDS: STRIVERDI RESPIMAT 2 PUFF INH (08:01)
[2023-08-28] MEDS: VITAMIN D3 (cholecalciferol) 25 MCG PO (08:41)
[2023-08-28] MEDS: THIAMINE INJECTION 200 MG IV ×2 (08:41→22:15)
[2023-08-28] MEDS: FOLVITE 1 MG PO (08:41)
[2023-08-28] MEDS: NICODERM TRANSDERMAL 14 MG TRANSDERM (08:41)
[2023-08-28] MEDS: FLOMAX 0.4 MG PO (08:41)
[2023-08-28] MEDS: LOTRIMIN 1% CREAM 1 APPLIC TOPICAL ×2 (08:49→22:16)
[2023-08-28] MEDS: HYDROPHOR 1 APPLIC TOPICAL (08:49)
--- NOTE | 2023-08-28 09:04 | W.PN.HOSP.TC ---
Today's Communication/Plan
-
IV antibiotics. PT OT reeval.
Assessment / Plan
Assessment / Plan
Physical exam:
General: Acute on chronically ill
HEENT: Normocephalic, Atraumatic and Moist Mucous Membranes
Respiratory: Clear to Auscultation; Negative Wheezes, Rales or Rhonchi
Cardiac: Regular Rhythm and S1/S2
GI: Soft, Nontender and Nondistended
Musculoskeletal: Pain left hip area and groin area. Decreased range of motion of the left hip. No Clubbing, No Cyanosis. Bilateral edema and erythema. Leg wrapped.
Neuro: Awake, Alert and Oriented
Psych: Calm
A/P:
Left hip fracture:
CT done today and resulted consistent with left acute minimally displaced fracture of the greater trochanteric hip.
Orthopedic consult appreciated and nonoperative treatment
Resumed anticoagulation since last evening
PT OT reeval pending
production service manager for rehab discharge disposition
Cellulitis bilateral lower extremity L>R:
Continue IV cefazolin
Fall versus ?syncope:
Continue cardiac monitoring
Cardio consult
Chronic systolic diastolic CHF:
Last echocardiogram in April showed EF 40 to 45% and stage I diastolic dysfunction
Repeated echo reviewed.
Not on diuretics currently.
Cardio eval appreciated
Paroxysmal A-fib:
Not on rate control agents
On anticoagulation of Eliquis
Cardiac monitoring
COPD:
On Spiriva and Striverdi
Albuterol as needed
Acute diarrhea:
Negative C. difficile
No norovirus or Shiga toxin
Salmonella Campylobacter Shigella pending
Hyponatremia:
Start fluid restriction
131 today
Anemia:
Hemoglobin 11.9 today
Continue to monitor
Depression anxiety:
Continue escitalopram 10 mg p.o. nightly
Continue trazodone 50 mg p.o. nightly
BPH:
Continue Flomax 0.4 mg daily
Alcohol use disorder:
Continue MSA protocol
Continue thiamine and folate
Nicotine use disorder:
Continue nicotine patch
DVT prophylaxis:
Hold Xarelto and start SCDs
CODE STATUS:
Full code
Anticipated Discharge: 24 - 48 hours
Subjective/Interval History
-
Date of Service: August 28, 2023
Presented with generalized weakness. Right hip pain more stable today. No chest pain or shortness of breath
Objective Data
-
Labs:
Laboratory Results
08/28/23
05:57
WBC 5.9
Hgb 11.9 L
Hct 35.0 L
Plt Count 275
Sodium 131 L
Potassium 4.1
Chloride 98
Carbon Dioxide 31 H
BUN 13
Creatinine 0.7
Glucose 84
Calcium 8.9
Vital Signs:
Vital Signs
Temp Pulse Resp BP Pulse Ox
98.5 F 70 20 146/77 94
08/28/23 07:51 08/28/23 08:07 08/28/23 08:07 08/28/23 07:51 08/28/23 08:07
I&O
08/27/23 08/28/23 08/29/23
06:59 06:59 06:59
Intake Total 1410 / 1410 900 / 900
Output Total 850 / 850 1045 / 1045
Balance 560 / 560 -145 / -145
--- NOTE | 2023-08-28 10:21 | W.PN.CARDCBS ---
Today's Communication / Plan
-
Stable cv status
Continues with anticoagulation
Outpt cardiac follow up
Impression / Plan
-
PCP: Dr. Hackett
Pole Frame Construction Worker: Dr. Goss
Impression:
Recurrent falls
L hip fracture
Hyponatremia
Cellulitis of LE
Paroxysmal atrial fibrillation
Chronic Xarelto anticoagulation
Cardiomyopathy
CAD w/ [place] in 1985, managed medically
COPD
Hypertension
Hyperlipidemia
mild-moderate mitral regurgitation
GERD
Tobacco abuse
Echo 05/22/2023: EF 40-45%, stage I diastolic dysfunction, mild cLVH, mild-mod MR, aortic sclerosis without stenosis, mild AI
Echo 08/27/2023: EF 40-45%, global hypokinesis, mild-mod MR, mild with peak/mean gradients 15/7 mmHg, mild AI, mild-mod TR, estimated PAP 35-40 mmHg
Plan:
Nonoperative management of Nondisplaced L greater trochanter fracture noted.
Cont PT/OT
He remains in sinus.
Check outpt [employer] monitor to assess AFib burden
Discussed anticoagulation including the bleeding risks versus stroke risk. He continues with anticoagulation which is his preference. He understands that if he has recurrent falls and he wants to continue with aggressive care, that he may be
considered for Watchman implant. We also discussed that if he has recurrent falls that we may need to stop his anticoagulation. He understands risks and benefits and like to continue anticoagulation.
Known CM with EF 40-45% by echo 08/26. He has h/o OK in the past without PCI. He has declined ischemic evaluations.
Continue abx per primary service for cellulitis.
Will arrange cardiac followup.
Please recall if needed
HPI: Yomi is an 87 year old male with PMH of Paroxysmal atrial fibrillation on chronic Xarelto, cardiomyopathy, prior OK, hypertension, hyperlipidemia, COPD, and GERD who presented to [facility] after multiple falls over the past few weeks. He denies any
dizziness or lightheadedness leading up to the falls. He states he feels tired and his legs will just give out. He does not believe he has had any syncope, however is not 100% certain. After his most recent fall, he reports he had L hip pain and was
unable to bear weight on that leg, prompting ER evaluation. In ER, he had xray of hip which was negative for fracture, however he continued to have hip pain and was unable to bear weight, so pelvis CT was ordered and did show acute minimally
displaced fracture of the greater trochanter of the L hip. Orthopedics saw patient and plan was for medical/non-operative management. Cardiology consulted for evaluation of possible syncope. He reports he is feeling overall well currently and has no
complaints. He does not feel when he has atrial fibrillation, however denies any rapid heart rates or palpitations. No afib has been noted on telemetry.
Progress Note - Pole Frame Construction Worker
Subjective
Date of Service: August 28, 2023
Pt seen and examined. No complaints. No chest pain or shortness of breath.
Objective
Labs:
08/28/23 05:57
08/28/23 05:57
Labs
Hgb 11.9 g/dL (13.0-18.0) L 08/28/23 05:57
Hct 35.0 % (39.0-52.0) L 08/28/23 05:57
Plt Count 275 10^3/uL (130-400) 08/28/23 05:57
Sodium 131 mmol/L (135-145) L 08/28/23 05:57
Potassium 4.1 mmol/L (3.5-5.1) 08/28/23 05:57
BUN 13 mg/dl (9-20) 08/28/23 05:57
Creatinine 0.7 mg/dL (0.7-1.3) 08/28/23 05:57
Glucose 84 mg/dl (70-99) 08/28/23 05:57
Vital Signs and I&O:
Vital Signs
Temp Pulse Resp BP Pulse Ox
98.5 F 70 20 146/77 94
08/28/23 07:51 08/28/23 08:07 08/28/23 08:07 08/28/23 07:51 08/28/23 08:07
Vital Signs
Temp Pulse Resp BP Pulse Ox
98.5 F 70 20 146/77 94
08/28/23 07:51 08/28/23 08:07 08/28/23 08:07 08/28/23 07:51 08/28/23 08:07
Intake & Output
08/26/23 08/27/23 08/28/23 08/29/23
06:59 06:59 06:59 06:59
Intake Total 0 / 0 1410 / 1410 900 / 900
Output Total 450 / 450 850 / 850 1045 / 1045
Balance -450 / -450 560 / 560 -145 / -145
Physical Exam
Physical Exam
General: No acute distress, AAOX3
Neck: Negative JVD
Heart: Regular, Negative S3 positive S1/S2, Negative S4, No murmur
Lungs: CTA b/l, negative wheezes/rales/rhonchi
Abd: Positive BS, NT/ND, neg rebound/rigidity/guarding
Ext: Negative cyanosis/clubbing/edema
Neuro: nonfocal
--- NOTE | 2023-08-28 11:35 | CM ---
Addendum entered by Shruthi Grimm 08/28/23 14:07:
[facility] unable to accept - do not accept pts insurance
Spoke with daughter Taryn [phone] - informed ins not accepted at
Requested referral be sent to [facility] - sent in care port
Daughter and pts will also look for other options ar Medicare.[employer]
Original Note:
Case management following for d/c planning
Chart reviewed. Received message from pts daughter requesting referral be sent to [facility] for SNF poss LTC
Referral sent in Care Port
Daughter to visit later today - will discuss with daughter
Plan - SNF when medically ready
[2023-08-28] MEDS: XARELTO 20 MG PO (17:26)
[2023-08-28] MEDS: ULTRAM 25 MG PO (20:18)
[2023-08-28] MEDS: ProAIR HFA INHALER 2 PUFF INH (22:10)
[2023-08-28] MEDS: TYLENOL 1000 MG PO (22:14)
[2023-08-28] MEDS: MELATONIN 5 MG PO (22:15)
[2023-08-28] MEDS: DESYREL 50 MG PO (22:15)
[2023-08-28] MEDS: LEXAPRO 10 MG PO (22:15)
[2023-08-28] MEDS: VITAMIN B1 PO (23:14)
[2023-08-29] MEDS: ANCEF 5 IV ×2 (02:56→09:19)
[2023-08-29 05:32] VITALS: BMI 21.4
[2023-08-29 06:16] LABS: Hematocrit 36.1 % (39.0-52.0); Mean Corp Hgb Conc. 33.2 g/dL (33.0-37.0); Mean Corpuscular Hgb 31.2 pg (27.0-31.0); Mean Corpuscular Volume 93.8 fL (80.0-94.0); Mean Platelet Volume 8.7 fL (7.4-10.4); Platelet Count 273 10^3/uL (130-400); Red Blood Cell Count 3.85 10^6/uL (4.70-6.10); Red Cell Dist. Width 14.6 % (11.5-14.5); White Blood Cell Count 5.4 10^3/uL (4.8-10.8)
[2023-08-29 07:00] VITALS: BP 133/80
[2023-08-29 07:06] LABS: Blood Urea Nitrogen 15 mg/dl (9-20); Calcium 9.2 mg/dl (8.4-10.2); Carbon Dioxide 30 mmol/L (22-30); Chloride 98 mmol/L (98-107); Estimated Creatinine Clearance 73 ml/min; Glucose 84 mg/dl (70-99); Potassium 4.6 mmol/L (3.5-5.1); Sodium 132 mmol/L (135-145); eGFR > 60.00
[2023-08-29] MEDS: VITAMIN D3 (cholecalciferol) 25 MCG PO (07:56)
[2023-08-29] MEDS: FLOMAX 0.4 MG PO (07:56)
[2023-08-29] MEDS: FOLVITE 1 MG PO (07:57)
[2023-08-29] MEDS: NICODERM TRANSDERMAL 14 MG TRANSDERM (07:57)
[2023-08-29] MEDS: ULTRAM 25 MG PO (07:57)
[2023-08-29] MEDS: VITAMIN B1 100 MG PO (07:57)
[2023-08-29] MEDS: HYDROPHOR 1 APPLIC TOPICAL (08:01)
[2023-08-29] MEDS: LOTRIMIN 1% CREAM 1 APPLIC TOPICAL ×2 (08:01→21:23)
--- NOTE | 2023-08-29 08:07 | W.PN.HOSP.TC ---
Today's Communication/Plan
-
Change antibiotics to oral. Oxycodone. Discharge planning in progress
Assessment / Plan
Assessment / Plan
Physical exam:
General: Chronically ill
HEENT: Normocephalic, Atraumatic and Moist Mucous Membranes
Respiratory: Clear to Auscultation; Negative Wheezes, Rales or Rhonchi
Cardiac: Regular Rhythm and S1/S2
GI: Soft, Nontender and Nondistended
Musculoskeletal: Pain left hip area and groin area. Decreased range of motion of the left hip. No Clubbing, No Cyanosis. Bilateral edema and erythema. Leg wrapped.
Neuro: Awake, Alert and Oriented
Psych: Calm
A/P:
Left hip fracture:
CT done today and resulted consistent with left acute minimally displaced fracture of the greater trochanteric hip.
Orthopedic consult appreciated and nonoperative treatment
Resumed anticoagulation since last evening
PT OT reeval
Change pain medications from Ultram to Oxy
retail associate manager bilingual for rehab discharge disposition
Cellulitis bilateral lower extremity L>R:
Change IV cefazolin to oral Keflex
Fall versus ?syncope:
Continue cardiac monitoring
Cardio consult
Chronic systolic diastolic CHF:
Last echocardiogram in April showed EF 40 to 45% and stage I diastolic dysfunction
Repeated echo reviewed.
Not on diuretics currently.
Cardio eval appreciated
Paroxysmal A-fib:
Not on rate control agents
On anticoagulation of Eliquis
Cardiac monitoring
COPD:
On Spiriva and Striverdi
Albuterol as needed
Acute diarrhea:
Negative C. difficile
No norovirus or Shiga toxin
Salmonella Campylobacter Shigella pending
Hyponatremia:
Start fluid restriction
131 today
Anemia:
Hemoglobin 11.9 today
Continue to monitor
Depression anxiety:
Continue escitalopram 10 mg p.o. nightly
Continue trazodone 50 mg p.o. nightly
BPH:
Continue Flomax 0.4 mg daily
Alcohol use disorder:
Continue MSA protocol
Continue thiamine and folate
Nicotine use disorder:
Continue nicotine patch
DVT prophylaxis:
Hold Xarelto and start SCDs
CODE STATUS:
Full code
Anticipated Discharge: Today
Subjective/Interval History
-
Date of Service: August 29, 2023
Patient with pain in left hip area. No chest pain or shortness of breath.
Objective Data
-
Labs:
Laboratory Results
08/29/23
06:02
WBC 5.4
Hgb 12.0 L
Hct 36.1 L
Plt Count 273
Sodium 132 L
Potassium 4.6
Chloride 98
Carbon Dioxide 30
BUN 15
Creatinine 0.7
Glucose 84
Calcium 9.2
Vital Signs:
Vital Signs
Temp Pulse Resp BP Pulse Ox
97.5 F 64 18 133/80 96
08/29/23 07:00 08/29/23 07:00 08/29/23 07:00 08/29/23 07:00 08/29/23 07:00
I&O
08/28/23 08/29/23 08/30/23
06:59 06:59 06:59
Intake Total 900 / 900 420 / 420
Output Total 1045 / 1045 320 / 320
Balance -145 / -145 100 / 100
[2023-08-29] MEDS: SPIRIVA RESPIMAT 2.5 MCG 2 PUFF INH (08:11)
[2023-08-29] MEDS: STRIVERDI RESPIMAT 2 PUFF INH (08:11)
[2023-08-29] MEDS: TYLENOL 650 MG PO ×2 (09:18→21:25)
--- NOTE | 2023-08-29 10:39 | PTCARENOTE ---
pt MSAS dc'd per Dr Wynne. Score has been zero. Pt exhibiting no issues related to ETOH withdrawal.
--- NOTE | 2023-08-29 11:17 | CM ---
Addendum entered by Shruthi Grimm 08/29/23 13:28:
Spoke with pts yara Centeno and obtained additional choices
Referral sent in Care Port to the [facility] and [facility]
Plan - snf when medically ready
Original Note:
Case management following for d/c planning
Pt for snf at d/c
[facility] does not accept ins
[facility] - out of network
Spoke with pts yara Centeno [phone] - discussed other options for SNF - will review and run call with choices
CM will follow for d/c needs
Plan - snf when medically ready
[2023-08-29] MEDS: KEFLEX 500 MG PO ×3 (13:29→21:23)
[2023-08-29] MEDS: ROXICODONE 10 MG PO (13:30)
[2023-08-29 15:00] VITALS: BP 96/45
[2023-08-29] MEDS: XARELTO 20 MG PO (18:20)
[2023-08-29] MEDS: MELATONIN 5 MG PO (21:23)
[2023-08-29] MEDS: DESYREL 50 MG PO (21:23)
[2023-08-29] MEDS: LEXAPRO 10 MG PO (21:23)
[2023-08-29 23:44] VITALS: BP 117/55
[2023-08-30 07:30] VITALS: BP 144/71
[2023-08-30] MEDS: STRIVERDI RESPIMAT 2 PUFF INH (08:00)
[2023-08-30] MEDS: SPIRIVA RESPIMAT 2.5 MCG 2 PUFF INH (08:00)
[2023-08-30] MEDS: NICODERM TRANSDERMAL 14 MG TRANSDERM (09:06)
[2023-08-30] MEDS: KEFLEX 500 MG PO ×4 (09:06→21:21)
[2023-08-30] MEDS: FLOMAX 0.4 MG PO (09:06)
[2023-08-30] MEDS: LOTRIMIN 1% CREAM 1 APPLIC TOPICAL ×2 (09:07→19:43)
[2023-08-30] MEDS: VITAMIN D3 (cholecalciferol) 25 MCG PO (09:07)
[2023-08-30] MEDS: HYDROPHOR 1 APPLIC TOPICAL (09:07)
--- NOTE | 2023-08-30 09:25 | W.PN.HOSP.TC ---
Addendum entered and electronically signed by Stone Wynne MD 08/30/23 20:00:
Low BP tis afternoon but asymptomatic after given narcotic. Follow BP improving but follow up closely and if worsening or symptomatic would give bolus fluid and further evaluation warranted. Decrease doses of narcotics and monitor closely for now.
Also keep on cardiac monitoring.
Original Note:
Today's Communication/Plan
-
Continue current management. Discharge planning in progress.
Assessment / Plan
Assessment / Plan
Physical exam:
General: Chronically ill
HEENT: Normocephalic, Atraumatic and Moist Mucous Membranes
Respiratory: Clear to Auscultation; Negative Wheezes, Rales or Rhonchi
Cardiac: Regular Rhythm and S1/S2
GI: Soft, Nontender and Nondistended
Musculoskeletal: Pain left hip area and groin area. Decreased range of motion of the left hip. No Clubbing, No Cyanosis. Bilateral edema and erythema. Leg wrapped.
Neuro: Awake, Alert and Oriented
Psych: Calm
A/P:
Left hip fracture:
CT done today and resulted consistent with left acute minimally displaced fracture of the greater trochanteric hip.
Orthopedic consult appreciated and nonoperative treatment
Resumed anticoagulation since last evening
PT OT reeval
Cont Oxy
manager transport for rehab discharge disposition. Patient medically stable for discharge.
Cellulitis bilateral lower extremity L>R:
Continue oral Keflex
Fall versus syncope:
Discontinue cardiac monitoring
Cardio consult
Chronic systolic diastolic CHF:
Last echocardiogram in April showed EF 40 to 45% and stage I diastolic dysfunction
Repeated echo reviewed.
Not on diuretics currently.
Cardio eval appreciated
Paroxysmal A-fib:
Not on rate control agents
On anticoagulation of Eliquis
Cardiac monitoring
COPD:
On Spiriva and Striverdi
Albuterol as needed
Acute diarrhea:
Negative C. difficile
No norovirus or Shiga toxin
Salmonella Campylobacter Shigella pending
Hyponatremia:
Start fluid restriction
132 on 08/28
Anemia:
Hemoglobin 12 today
Continue to monitor
Depression anxiety:
Continue escitalopram 10 mg p.o. nightly
Continue trazodone 50 mg p.o. nightly
BPH:
Continue Flomax 0.4 mg daily
Alcohol use disorder:
Continue MSA protocol
Continue thiamine and folate
Nicotine use disorder:
Continue nicotine patch
DVT prophylaxis:
Hold Xarelto and start SCDs
CODE STATUS:
Full code
Anticipated Discharge: 24 - 48 hours
Subjective/Interval History
-
Date of Service: August 30, 2023
Patient hip pain is much improved after pain medications changes since yesterday. Otherwise denies any chest pain or shortness of breath. Participating with physical therapy by the time of my evaluation. Afebrile
Objective Data
-
Vital Signs:
Vital Signs
Temp Pulse Resp BP Pulse Ox
97.5 F 71 16 144/71 97
08/30/23 07:30 08/30/23 07:30 08/30/23 07:30 08/30/23 07:30 08/30/23 07:30
I&O
08/29/23 08/30/23 08/31/23
06:59 06:59 06:59
Intake Total 420 / 420 900 / 900
Output Total 320 / 320 1400 / 1400
Balance 100 / 100 -500 / -500
[2023-08-30 11:40] VITALS: BP 116/88; PULSE 68; O2SAT 97
[2023-08-30] MEDS: ROXICODONE 10 MG PO (13:47)
[2023-08-30 15:45] VITALS: BP 84/58
[2023-08-30 17:04] VITALS: BP 90/50
[2023-08-30] MEDS: XARELTO 20 MG PO (17:39)
[2023-08-30] MEDS: TYLENOL 650 MG PO (19:41)
[2023-08-30] MEDS: MELATONIN 5 MG PO (21:21)
[2023-08-30] MEDS: DESYREL 50 MG PO (21:21)
[2023-08-30] MEDS: ROXICODONE 5 MG PO (21:22)
[2023-08-30] MEDS: LEXAPRO 10 MG PO (21:22)
[2023-08-30 23:23] VITALS: BP 99/57
[2023-08-31] VITALS (7 sets, daily range): BP systolic 102–127; BP diastolic 45–93; PULSE 64–75; O2SAT 96
[2023-08-31 06:39] LABS: % Eosinophils 4.8 % (0-6); % Immature Granulocytes 0.5 % (0-0.5); % Lymphocytes 18.7 % (20.5-51.1); % Monocytes 14.6 % (1.7-9.3); % Neutrophils 60.4 % (42.2-75.2); Absolute Basophils 0.1 10^3/uL (0-0.2); Absolute Eosinophils 0.3 10^3/uL (0-0.7); Absolute Lymphocytes 1.2 10^3/uL (1.2-3.4); Absolute Monocytes 0.9 10^3/uL (0.1-0.6); Absolute Neutrophils 3.8 10^3/uL (1.4-6.5); Hematocrit 37.3 % (39.0-52.0); Hemoglobin 12.8 g/dL (13.0-18.0); Mean Corp Hgb Conc. 34.3 g/dL (33.0-37.0); Mean Corpuscular Hgb 31.7 pg (27.0-31.0); Mean Corpuscular Volume 92.3 fL (80.0-94.0); Nucleated Red Blood Cells % 0 % (-); Platelet Count 333 10^3/uL (130-400); Red Blood Cell Count 4.04 10^6/uL (4.70-6.10); Red Cell Dist. Width 14.5 % (11.5-14.5); White Blood Cell Count 6.3 10^3/uL (4.8-10.8)
[2023-08-31 06:49] LABS: ALT (SGPT) 10 U/L (0-50); AST (SGOT) 22 U/L (17-59); Albumin 3.3 g/dl (3.5-5.0); Alkaline Phosphatase 73 U/L (38-126); Blood Urea Nitrogen 17 mg/dl (9-20); Calcium 9.5 mg/dl (8.4-10.2); Carbon Dioxide 29 mmol/L (22-30); Chloride 98 mmol/L (98-107); Estimated Creatinine Clearance 73 ml/min; Glucose 79 mg/dl (70-99); Magnesium 2.3 mg/dl (1.6-2.3); Potassium 4.7 mmol/L (3.5-5.1); Sodium 133 mmol/L (135-145); Total Bilirubin 0.7 mg/dl (0.2-1.3); Total Protein 5.7 g/dl (6.3-8.2); eGFR > 60.00
[2023-08-31] MEDS: SPIRIVA RESPIMAT 2.5 MCG 2 PUFF INH (07:59)
[2023-08-31] MEDS: STRIVERDI RESPIMAT 2 PUFF INH (07:59)
--- NOTE | 2023-08-31 08:47 | W.PN.HOSP.TC ---
Today's Communication/Plan
-
Continue current management. Discharge planning in progress.
Assessment / Plan
Assessment / Plan
Physical exam:
General: Chronically ill
HEENT: Normocephalic, Atraumatic and Moist Mucous Membranes
Respiratory: Clear to Auscultation; Negative Wheezes, Rales or Rhonchi
Cardiac: Regular Rhythm and S1/S2
GI: Soft, Nontender and Nondistended
Musculoskeletal: Pain left hip area and groin area. Decreased range of motion of the left hip. No Clubbing, No Cyanosis. Bilateral edema and erythema. Leg wrapped.
Neuro: Awake, Alert and Oriented
Psych: Calm
A/P:
Left hip fracture:
CT done and resulted consistent with left acute minimally displaced fracture of the greater trochanteric hip.
Orthopedic consult appreciated and nonoperative treatment
PT OT
Cont Oxy 5 mg every 4 hours. IV Dilaudid as needed.
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 Patient medically stable for discharge.
Hypotension, asymptomatic (on 08/29):
Due to high dose narcotic--> tolerating lower dose
Resolved
No need for intervention
Cellulitis bilateral lower extremity L>R:
Continue oral Keflex
Fall versus syncope:
Discontinue cardiac monitoring
Cardio consult
Chronic systolic diastolic CHF:
Last echocardiogram in April showed EF 40 to 45% and stage I diastolic dysfunction
Repeated echo reviewed.
Not on diuretics currently.
Cardio eval appreciated
Paroxysmal A-fib:
Not on rate control agents
On anticoagulation of Eliquis
Discontinue cardiac monitoring
COPD:
On Spiriva and Striverdi
Albuterol as needed
Acute diarrhea:
Resolved
Negative C. difficile
No norovirus or Shiga toxin
Salmonella Campylobacter Shigella negative
Hyponatremia:
Continue fluid restriction
133 today on 08/30
Anemia:
Hemoglobin 12. 8 today on 08/30
Continue to monitor
Depression anxiety:
Continue escitalopram 10 mg p.o. nightly
Continue trazodone 50 mg p.o. nightly
BPH:
Continue Flomax 0.4 mg daily
Alcohol use disorder:
No withdrawal
Discontinue MSA protocol since no need for.
Discontinue thiamine and folate
Nicotine use disorder:
Continue nicotine patch
DVT prophylaxis:
Hold Xarelto and start SCDs
CODE STATUS:
Full code
Anticipated Discharge: 24 - 48 hours
Subjective/Interval History
-
Date of Service: August 31, 2023
Patient denies chest pain shortness of breath palpitations diaphoresis or lightheadedness. Blood pressure improved today. Pain tolerable.
Objective Data
-
Labs:
Laboratory Results
08/31/23
05:58
WBC 6.3
Hgb 12.8 L
Hct 37.3 L
Plt Count 333 D
Sodium 133 L
Potassium 4.7
Chloride 98
Carbon Dioxide 29
BUN 17
Creatinine 0.7
Glucose 79
Calcium 9.5
Total Bilirubin 0.7
AST 22
ALT 10
Alkaline Phosphatase 73
Vital Signs:
Vital Signs
Temp Pulse Resp BP Pulse Ox
98.0 F 76 16 127/93 95
08/31/23 07:29 08/31/23 08:20 08/31/23 08:20 08/31/23 07:29 08/31/23 08:20
I&O
08/30/23 08/31/23 09/01/23
06:59 06:59 06:59
Intake Total 900 / 900 600 / 600
Output Total 1400 / 1400 500 / 500
Balance -500 / -500 100 / 100
[2023-08-31] MEDS: HYDROPHOR 1 APPLIC TOPICAL (09:08)
[2023-08-31] MEDS: NICODERM TRANSDERMAL 14 MG TRANSDERM (09:09)
[2023-08-31] MEDS: FLOMAX 0.4 MG PO (09:09)
[2023-08-31] MEDS: KEFLEX 500 MG PO ×4 (09:09→21:00)
[2023-08-31] MEDS: LOTRIMIN 1% CREAM 1 APPLIC TOPICAL ×2 (09:09→21:01)
[2023-08-31] MEDS: VITAMIN D3 (cholecalciferol) 25 MCG PO (09:09)
[2023-08-31] MEDS: ROXICODONE 5 MG PO (09:45)
--- NOTE | 2023-08-31 11:30 | PTCARENOTE ---
Patient c/o 07/05 left hip pain. Roxicodone given with relief of pain, but patient c/o feeling very tired and just not himself since taking the pain med. BP120/56, ambulating to with supervision.
--- NOTE | 2023-08-31 15:26 | CM ---
Case management following for d/c planning
Spoke with Cristal at the [facility] - currently do not have beds available
Spoke with pts daughter Taryn - prefers [facility] when medically ready - LM asking about bed availability over /Sunday
Will need auth
Plan - anticipate SNF when medically ready
[2023-08-31] MEDS: XARELTO 20 MG PO (17:38)
--- NOTE | 2023-08-31 18:10 | PTCARENOTE ---
Patient feeling better than this am after Roxicodone. Patient sitting in chair, with minimal c/o pain 04/07. Denies need for pain med. Call [facility] in reach.
[2023-08-31] MEDS: MELATONIN 5 MG PO (21:00)
[2023-08-31] MEDS: DESYREL 50 MG PO (21:00)
[2023-08-31] MEDS: LEXAPRO 10 MG PO (21:00)
[2023-09-01] MEDS: TYLENOL 650 MG PO ×3 (02:17→21:51)
[2023-09-01 07:00] VITALS: BP 132/72
[2023-09-01] MEDS: SPIRIVA RESPIMAT 2.5 MCG 2 PUFF INH (08:26)
[2023-09-01] MEDS: STRIVERDI RESPIMAT 2 PUFF INH (08:28)
[2023-09-01] MEDS: VITAMIN D3 (cholecalciferol) 25 MCG PO (08:43)
[2023-09-01] MEDS: FLOMAX 0.4 MG PO (08:43)
[2023-09-01] MEDS: LOTRIMIN 1% CREAM 1 APPLIC TOPICAL ×2 (08:44→21:50)
[2023-09-01] MEDS: HYDROPHOR 1 APPLIC TOPICAL (08:45)
[2023-09-01] MEDS: KEFLEX 500 MG PO ×4 (08:48→21:50)
[2023-09-01] MEDS: NICODERM TRANSDERMAL 14 MG TRANSDERM (08:48)
--- NOTE | 2023-09-01 09:39 | W.PN.HOSP.TC ---
Today's Communication/Plan
-
Discharge planning in progress.
Assessment / Plan
Assessment / Plan
Physical exam:
General: Chronically ill
HEENT: Normocephalic, Atraumatic and Moist Mucous Membranes
Respiratory: Clear to Auscultation; Negative Wheezes, Rales or Rhonchi
Cardiac: Regular Rhythm and S1/S2
GI: Soft, Nontender and Nondistended
Musculoskeletal: Pain left hip area and groin area. Decreased range of motion of the left hip. No Clubbing, No Cyanosis. Bilateral edema and erythema. Leg wrapped.
Neuro: Awake, Alert and Oriented
Psych: Calm
A/P:
Left hip fracture:
CT done and resulted consistent with left acute minimally displaced fracture of the greater trochanteric hip.
Orthopedic consult appreciated and nonoperative treatment
PT OT
Cont Oxy 5 mg every 4 hours.
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 Patient medically stable for discharge.
Hypotension, asymptomatic (on 08/29), Resolved:
Due to high dose narcotic--> tolerating lower dose
No need for intervention
Cellulitis bilateral lower extremity L>R:
Continue oral Keflex
Fall versus syncope:
Discontinue cardiac monitoring
Cardio consult
Chronic systolic diastolic CHF:
Last echocardiogram in April showed EF 40 to 45% and stage I diastolic dysfunction
Repeated echo reviewed.
Not on diuretics currently.
Cardio eval appreciated
Paroxysmal A-fib:
Not on rate control agents
On anticoagulation of Eliquis
Discontinue cardiac monitoring
COPD:
On Spiriva and Striverdi
Albuterol as needed
Acute diarrhea:
Resolved
Negative C. difficile
No norovirus or Shiga toxin
Salmonella Campylobacter Shigella negative
Hyponatremia:
Continue fluid restriction
133 on 08/30
Anemia:
Hemoglobin 12.8 on 08/30
Continue to monitor
Depression anxiety:
Continue escitalopram 10 mg p.o. nightly
Continue trazodone 50 mg p.o. nightly
BPH:
Continue Flomax 0.4 mg daily
Alcohol use disorder:
No withdrawal
Discontinue MSA protocol since no need for.
Discontinue thiamine and folate
Nicotine use disorder:
Continue nicotine patch
DVT prophylaxis:
Cont Xarelto and start SCDs
CODE STATUS:
Full code
Anticipated Discharge: 24 - 48 hours
Subjective/Interval History
-
Date of Service: September 01, 2023
Patient denies any new complaints. Tells me mild anxiety yesterday but not today. No chest pain or shortness of breath.
Objective Data
-
Vital Signs:
Vital Signs
Temp Pulse Resp BP Pulse Ox
97.9 F 73 16 132/72 96
09/01/23 07:00 09/01/23 08:30 09/01/23 08:30 09/01/23 07:00 09/01/23 08:30
I&O
08/31/23 09/01/23 09/02/23
06:59 06:59 06:59
Intake Total 600 / 600 1320 / 1320
Output Total 500 / 500 2175 / 2175
Balance 100 / 100 -855 / -855
[2023-09-01 15:00] VITALS: BP 110/54; BP 115/54; BP 80/40; PULSE 71; PULSE 72
[2023-09-01] MEDS: XARELTO 20 MG PO (17:40)
[2023-09-01] MEDS: LEXAPRO 10 MG PO (21:51)
[2023-09-01] MEDS: MELATONIN 5 MG PO (21:51)
[2023-09-01] MEDS: DESYREL 50 MG PO (21:51)
[2023-09-01 23:00] VITALS: BP 110/54
[2023-09-02 07:00] VITALS: BP 137/74
[2023-09-02] MEDS: STRIVERDI RESPIMAT 2 PUFF INH (08:20)
[2023-09-02] MEDS: SPIRIVA RESPIMAT 2.5 MCG 2 PUFF INH (08:20)
[2023-09-02] MEDS: LOTRIMIN 1% CREAM 1 APPLIC TOPICAL ×2 (08:28→21:29)
[2023-09-02] MEDS: FLOMAX 0.4 MG PO (08:28)
[2023-09-02] MEDS: NICODERM TRANSDERMAL 14 MG TRANSDERM (08:28)
[2023-09-02] MEDS: VITAMIN D3 (cholecalciferol) 25 MCG PO (08:28)
[2023-09-02] MEDS: KEFLEX 500 MG PO ×4 (08:28→21:28)
[2023-09-02] MEDS: HYDROPHOR 1 APPLIC TOPICAL (08:29)
--- NOTE | 2023-09-02 08:33 | W.PN.HOSP.TC ---
Today's Communication/Plan
-
Discharge planning in progress.
Assessment / Plan
Assessment / Plan
Physical exam:
General: No acute distress
HEENT: Normocephalic, Atraumatic and Moist Mucous Membranes
Respiratory: Clear to Auscultation; Negative Wheezes, Rales or Rhonchi
Cardiac: Regular Rhythm and S1/S2
GI: Soft, Nontender and Nondistended
Musculoskeletal: Discomfort and left hip area and groin area. Erythema improving. No Clubbing, No Cyanosis.
Neuro: Awake, Alert and Oriented
Psych: Calm
A/P:
Left hip fracture:
CT done and resulted consistent with left acute minimally displaced fracture of the greater trochanteric hip.
Orthopedic consult appreciated and nonoperative treatment
PT OT
Cont Oxy 5 mg every 4 hours (printed prescription and placed on the chart).
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 Patient medically stable for discharge.
Hypotension, asymptomatic (on 08/29), Resolved:
Due to high dose narcotic--> tolerating lower dose
No need for intervention
Cellulitis bilateral lower extremity L>R:
Continue oral Keflex but pretty close to finish course.
Fall versus syncope:
Discontinued cardiac monitoring
Cardio consult appreciated.
Chronic systolic diastolic CHF:
Last echocardiogram in April showed EF 40 to 45% and stage I diastolic dysfunction
Repeated echo reviewed.
Not on diuretics currently.
Cardio eval appreciated
Paroxysmal A-fib:
Not on rate control agents
On anticoagulation of Eliquis
Discontinue cardiac monitoring
COPD:
On Spiriva and Striverdi
Albuterol as needed
Acute diarrhea:
Resolved
Negative C. difficile
No norovirus or Shiga toxin
Salmonella Campylobacter Shigella negative
Hyponatremia:
Continue fluid restriction
133 today
Anemia:
Hemoglobin 12.3 today
Continue to monitor
Depression anxiety:
Continue escitalopram 10 mg p.o. nightly
Continue trazodone 50 mg p.o. nightly
BPH:
Continue Flomax 0.4 mg daily
Alcohol use disorder:
No withdrawal
Discontinue MSA protocol since no need for.
Discontinue thiamine and folate
Nicotine use disorder:
Continue nicotine patch
DVT prophylaxis:
Cont Xarelto and start SCDs
CODE STATUS:
Full code
Anticipated Discharge: 24 - 48 hours
Subjective/Interval History
-
Date of Service: September 02, 2023
Patient denies chest pain or shortness of breath.
Objective Data
-
Vital Signs:
Vital Signs
Temp Pulse Resp BP Pulse Ox
98 F 72 16 137/74 96
09/02/23 07:00 09/02/23 08:24 09/02/23 08:24 09/02/23 07:00 09/02/23 08:24
I&O
09/01/23 09/02/23 09/03/23
06:59 06:59 06:59
Intake Total 1320 / 1320 600 / 600
Output Total 2175 / 2175 480 / 480
Balance -855 / -855 120 / 120
[2023-09-02 09:00] LABS: Hemoglobin 12.3 g/dL (13.0-18.0); Mean Corp Hgb Conc. 34.2 g/dL (33.0-37.0); Mean Corpuscular Hgb 31.9 pg (27.0-31.0); Mean Corpuscular Volume 93.3 fL (80.0-94.0); Mean Platelet Volume 8.8 fL (7.4-10.4); Platelet Count 326 10^3/uL (130-400); Red Blood Cell Count 3.86 10^6/uL (4.70-6.10); Red Cell Dist. Width 14.6 % (11.5-14.5); White Blood Cell Count 5.3 10^3/uL (4.8-10.8)
[2023-09-02 09:21] LABS: Blood Urea Nitrogen 15 mg/dl (9-20); Calcium 9.2 mg/dl (8.4-10.2); Carbon Dioxide 28 mmol/L (22-30); Chloride 100 mmol/L (98-107); Estimated Creatinine Clearance 73 ml/min; Glucose 89 mg/dl (70-99); Potassium 4.3 mmol/L (3.5-5.1); Sodium 133 mmol/L (135-145); eGFR > 60.00
[2023-09-02] MEDS: ROXICODONE 5 MG PO (10:40)
[2023-09-02 10:50] VITALS: BP 113/51; BP 128/57; PULSE 68; O2SAT 98
[2023-09-02] MEDS: TYLENOL 650 MG PO ×2 (13:14→18:22)
[2023-09-02 15:00] VITALS: BP 100/52
[2023-09-02 18:02] VITALS: BP 104/52; BP 91/60; BP 97/47; PULSE 57; PULSE 69; PULSE 72
[2023-09-02] MEDS: XARELTO 20 MG PO (18:22)
[2023-09-02 19:30] VITALS: BP 116/51; BP 116/55; BP 129/58; PULSE 66; PULSE 67; PULSE 68
[2023-09-02] MEDS: LEXAPRO 10 MG PO (21:28)
[2023-09-02] MEDS: DESYREL 50 MG PO (21:28)
[2023-09-02] MEDS: MELATONIN 5 MG PO (21:28)
[2023-09-02 23:14] VITALS: BP 110/58
[2023-09-03] VITALS (8 sets, daily range): BP systolic 87–138; BP diastolic 43–81; PULSE 60–76; O2SAT 94–95; BMI 21.0
[2023-09-03] MEDS: NICODERM TRANSDERMAL 14 MG TRANSDERM (08:08)
[2023-09-03] MEDS: HYDROPHOR 1 APPLIC TOPICAL (08:08)
[2023-09-03] MEDS: FLOMAX 0.4 MG PO (08:08)
[2023-09-03] MEDS: VITAMIN D3 (cholecalciferol) 25 MCG PO (08:08)
[2023-09-03] MEDS: KEFLEX 500 MG PO ×4 (08:08→21:33)
[2023-09-03] MEDS: LOTRIMIN 1% CREAM 1 APPLIC TOPICAL (08:09)
[2023-09-03] MEDS: STRIVERDI RESPIMAT 2 PUFF INH (08:27)
[2023-09-03] MEDS: SPIRIVA RESPIMAT 2.5 MCG 2 PUFF INH (08:28)
--- NOTE | 2023-09-03 11:32 | W.PN.HOSP.TC ---
Today's Communication/Plan
-
see A/P
Assessment / Plan
Assessment / Plan
Physical exam:
General: No acute distress
HEENT: Normocephalic, Atraumatic and Moist Mucous Membranes
Respiratory: Clear to Auscultation; Negative Wheezes, Rales or Rhonchi
Cardiac: Regular Rhythm and S1/S2
GI: Soft, Nontender and Nondistended
Musculoskeletal: Discomfort and left hip area and groin area. Erythema improving. No Clubbing, No Cyanosis.
Neuro: Awake, Alert and Oriented
Psych: Calm
A/P:
# Left hip fracture
CT noted left acute minimally displaced fracture of the greater trochanteric hip.
Orthopedic recc nonoperative treatment
Cont PT OT
Cont Oxy 5 mg every 4 hours (printed prescription and placed on the chart).
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 Patient medically stable for discharge.
# Hypotension, asymptomatic (on 08/29), Resolved
Due to high dose narcotic, tolerating lower dose
No need for intervention
# Cellulitis bilateral lower extremity L > R
Continue oral Keflex but pretty close to finish course.
# Fall versus syncope
Discontinued cardiac monitoring
Cardio consult appreciated.
# Chronic systolic diastolic CHF
Last echocardiogram in April showed EF 40 to 45% and stage I diastolic dysfunction
Repeated echo reviewed.
Not on diuretics currently.
Cardio eval appreciated
# Paroxysmal A-fib
Not on rate control agents
On anticoagulation Eliquis
Discontinue cardiac monitoring
# COPD
On Spiriva and Striverdi
Albuterol as needed
# Acute diarrhea, Resolved
Negative C. difficile
No norovirus or Shiga toxin
Salmonella Campylobacter Shigella negative
# Mild Hyponatremia
Continue fluid restriction
# Anemia
Hemoglobin 12.3 today
Continue to monitor
# Depression/anxiety
Continue escitalopram 10 mg p.o. nightly
Continue trazodone 50 mg p.o. nightly
# BPH:
Continue Flomax 0.4 mg daily
# Alcohol use disorder
No withdrawal
Discontinue MSA protocol since no need for.
Discontinue thiamine and folate
# Nicotine use disorder
Continue nicotine patch
DVT prophylaxis: Cont Xarelto and start SCDs
CODE STATUS: Full code
DW CM
Anticipated Discharge: Within 24 hours
Subjective/Interval History
-
Date of Service: September 03, 2023
Objective Data
-
Vital Signs:
Vital Signs
Temp Pulse Resp BP Pulse Ox
36.4 C 64 16 138/81 98
09/03/23 07:00 09/03/23 08:31 09/03/23 08:31 09/03/23 07:00 09/03/23 08:31
I&O
09/02/23 09/03/23 09/04/23
06:59 06:59 06:59
Intake Total 600 / 600 900 / 900
Output Total 480 / 480 2550 / 2550
Balance 120 / 120 -1650 / -1650
Review of Systems
-
All other systems: Reviewed and negative
Data Reviewed
-
CT Scan: Report Reviewed by me
Labs: Labs Reviewed by me
--- NOTE | 2023-09-03 11:50 | CM ---
Addendum entered by Maite Sifuentes 09/03/23 14:45:
pending auth with [employer] is #[id number]
Original Note:
Patient seen at bedside. CM spoke with patient daughter and she is interested in SNF placement at [facility] if no beds are available at [facility]. CM left x2 for admissions to confirm no available beds. CM attempted to call [facility] and was
disconnected. CM will try again.
CM updated physician.
[2023-09-03] MEDS: TYLENOL 650 MG PO ×2 (13:38→22:43)
[2023-09-03] MEDS: XARELTO 20 MG PO (17:09)
[2023-09-03] MEDS: ROXICODONE 5 MG PO (21:32)
[2023-09-03] MEDS: LEXAPRO 10 MG PO (21:33)
[2023-09-03] MEDS: MELATONIN 5 MG PO (21:33)
[2023-09-03] MEDS: DESYREL 50 MG PO (21:33)
[2023-09-03] MEDS: LOTRIMIN 1% CREAM TOPICAL (21:51)
[2023-09-04 06:00] VITALS: BMI 21.2
[2023-09-04 06:30] LABS: Hematocrit 34.9 % (39.0-52.0); Hemoglobin 12.2 g/dL (13.0-18.0); Mean Corpuscular Hgb 32.8 pg (27.0-31.0); Mean Corpuscular Volume 93.8 fL (80.0-94.0); Mean Platelet Volume 8.9 fL (7.4-10.4); Platelet Count 326 10^3/uL (130-400); Red Blood Cell Count 3.72 10^6/uL (4.70-6.10); Red Cell Dist. Width 14.6 % (11.5-14.5); White Blood Cell Count 4.5 10^3/uL (4.8-10.8)
[2023-09-04 06:52] LABS: Blood Urea Nitrogen 18 mg/dl (9-20); Calcium 9.1 mg/dl (8.4-10.2); Carbon Dioxide 27 mmol/L (22-30); Chloride 99 mmol/L (98-107); Estimated Creatinine Clearance 72 ml/min; Glucose 79 mg/dl (70-99); Sodium 132 mmol/L (135-145); eGFR > 60.00
[2023-09-04 07:00] VITALS: BP 124/57
--- NOTE | 2023-09-04 07:43 | CM ---
Addendum entered by Maite Sifuentes 09/04/23 11:14:
No authorization from [facility] as of yet. patient unable to be discharged without auth, physician made aware.
Original Note:
Request for assistance sent to [facility] for authorization started yesterday. CM will update patient daughter and physician/facility as updates are provided.
[2023-09-04] MEDS: FLOMAX 0.4 MG PO (07:55)
[2023-09-04] MEDS: VITAMIN D3 (cholecalciferol) 25 MCG PO (07:55)
[2023-09-04] MEDS: KEFLEX 500 MG PO ×4 (07:55→21:58)
[2023-09-04] MEDS: HYDROPHOR 1 APPLIC TOPICAL (07:56)
[2023-09-04] MEDS: NICODERM TRANSDERMAL 14 MG TRANSDERM (07:56)
[2023-09-04] MEDS: LOTRIMIN 1% CREAM 1 APPLIC TOPICAL ×2 (07:57→20:57)
[2023-09-04] MEDS: SPIRIVA RESPIMAT 2.5 MCG 2 PUFF INH (08:51)
[2023-09-04] MEDS: STRIVERDI RESPIMAT 2 PUFF INH (08:51)
[2023-09-04 10:36] VITALS: BP 74/36; BP 86/42; BP 91/44; PULSE 66; PULSE 69; PULSE 70
[2023-09-04] MEDS: TYLENOL 650 MG PO ×2 (10:37→20:57)
--- NOTE | 2023-09-04 11:00 | PN.CDI ---
CDI
- -
CDI:
Physician Documentation Request
Admit Date: 08/25/23 18:37
Dear Doctor Jose,
Patient admitted with left hip fracture.
ED note, ' ....inability to walk since he fell approximately 6 days ago and then fell again 2 days ago.'
08/24 left hip x-ray, 'There is likely diffuse osteopenia.'
Home medications include Cholecalciferol.
Please clarify the likely etiology/ etiologies of the left hip fracture:
Multifactorial due to fall and age-related osteoporosis
Fall only
Other
Use of terms such as suspected, likely, concern for, or probable (associated with a specific diagnosis that is being evaluated, monitored, or treated as if it exists) are acceptable and can be coded in the inpatient setting, when documented at the
time of discharge.
Thank you,
Annalise PANTOJA,RN,CCDS
CDI Specialist
Available via [employer] text
Please use your independent medical judgment in providing your response.
--- NOTE | 2023-09-04 11:03 | W.PN.HOSP.TC ---
Addendum entered and electronically signed by Stefany Garcia MD 09/04/23 12:06:
# Left hip fracture, Multifactorial due to fall and age-related osteoporosis
Original Note:
Today's Communication/Plan
-
for SNF
Assessment / Plan
Assessment / Plan
A/P:
# Left hip fracture
CT noted left acute minimally displaced fracture of the greater trochanteric hip.
Orthopedic recc nonoperative treatment
Cont PT OT
Cont Oxy 5 mg every 4 hours (printed prescription and placed on the chart).
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 Patient medically stable for discharge.
# Hypotension, asymptomatic (on 08/29), Resolved
Due to high dose narcotic, tolerating lower dose
No need for intervention
# Cellulitis bilateral lower extremity L > R
Continue oral Keflex but pretty close to finish course.
# Fall versus syncope
Discontinued cardiac monitoring
Cardio consult appreciated.
# Chronic systolic diastolic CHF
Last echocardiogram in April showed EF 40 to 45% and stage I diastolic dysfunction
Repeated echo reviewed.
Not on diuretics currently.
Cardio eval appreciated
# Paroxysmal A-fib
Not on rate control agents
On anticoagulation Eliquis
Discontinue cardiac monitoring
# COPD
On Spiriva and Striverdi
Albuterol as needed
# Acute diarrhea, Resolved
Negative C. difficile
No norovirus or Shiga toxin
Salmonella Campylobacter Shigella negative
# Mild Hyponatremia
Continue fluid restriction
# Anemia
Hemoglobin 12.3 today
Continue to monitor
# Depression/anxiety
Continue escitalopram 10 mg p.o. nightly
Continue trazodone 50 mg p.o. nightly
# BPH:
Continue Flomax 0.4 mg daily
# Alcohol use disorder
No withdrawal
Discontinue MSA protocol since no need for.
Discontinue thiamine and folate
# Nicotine use disorder
Continue nicotine patch
DVT prophylaxis: Cont Xarelto and start SCDs
CODE STATUS: Full code
DW CM
Anticipated Discharge: Within 24 hours
Subjective/Interval History
-
Date of Service: September 04, 2023
Objective Data
-
Labs:
Laboratory Results
09/04/23
05:49
WBC 4.5 L
Hgb 12.2 L
Hct 34.9 L
Plt Count 326
Sodium 132 L
Potassium 5.0
Chloride 99
Carbon Dioxide 27
BUN 18
Creatinine 0.7
Glucose 79
Calcium 9.1
Vital Signs:
Vital Signs
Temp Pulse Resp BP Pulse Ox
36.7 C 62 16 124/57 98
09/04/23 07:00 09/04/23 08:50 09/04/23 08:50 09/04/23 07:00 09/04/23 08:50
I&O
09/03/23 09/04/23 09/05/23
06:59 06:59 06:59
Intake Total 900 / 900 1020 / 1020
Output Total 2550 / 2550 1700 / 1700
Balance -1650 / -1650 -680 / -680
Review of Systems
-
All other systems: Reviewed and negative
Physical Exam
-
General: Well Developed, No Apparent Distress, Comfortable and Conversant
HEENT: Normocephalic and Atraumatic
Respiratory: Clear to Auscultation and Non Labored Respirations; Negative Accessory Resp Muscle Use
Cardiac: Regular Rhythm and S1/S2
GI: Soft, Nontender, Nondistended and Normal Bowel Sounds; Negative Organomegaly
Rectal: Deferred by Provider
Musculoskeletal: No Clubbing and No Cyanosis
Neuro: Awake
Psych: Calm and Intact Judgement/Insight (somewhat)
Data Reviewed
-
CT Scan: Report Reviewed by me
Labs: Labs Reviewed by me
[2023-09-04 11:14] VITALS: BP 91/44; PULSE 65; O2SAT 92
[2023-09-04 15:26] VITALS: BP 106/50
[2023-09-04] MEDS: XARELTO 20 MG PO (17:03)
[2023-09-04 19:25] VITALS: BP 127/66; BP 130/66; BP 131/61; PULSE 68; PULSE 71; PULSE 72
[2023-09-04] MEDS: ROXICODONE 5 MG PO (20:57)
[2023-09-04] MEDS: MELATONIN 5 MG PO (21:58)
[2023-09-04] MEDS: DESYREL 50 MG PO (21:58)
[2023-09-04] MEDS: LEXAPRO 10 MG PO (21:58)
[2023-09-04 23:43] VITALS: BP 100/53
[2023-09-05] VITALS (7 sets, daily range): BP systolic 80–133; BP diastolic 43–65; PULSE 61–73; O2SAT 97; BMI 21.0
[2023-09-05] MEDS: ROXICODONE 5 MG PO ×2 (06:21→21:42)
[2023-09-05] MEDS: STRIVERDI RESPIMAT 2 PUFF INH (07:29)
[2023-09-05] MEDS: SPIRIVA RESPIMAT 2.5 MCG 2 PUFF INH (07:29)
[2023-09-05] MEDS: KEFLEX 500 MG PO ×4 (09:32→21:42)
[2023-09-05] MEDS: VITAMIN D3 (cholecalciferol) 25 MCG PO (09:32)
[2023-09-05] MEDS: FLOMAX 0.4 MG PO (09:32)
[2023-09-05] MEDS: HYDROPHOR 1 APPLIC TOPICAL (09:32)
[2023-09-05] MEDS: NICODERM TRANSDERMAL 14 MG TRANSDERM (09:33)
[2023-09-05] MEDS: LOTRIMIN 1% CREAM 1 APPLIC TOPICAL ×2 (09:34→20:13)
--- NOTE | 2023-09-05 09:56 | W.PN.HOSP.TC ---
Today's Communication/Plan
-
pending SNF
Assessment / Plan
Assessment / Plan
A/P:
# Left hip fracture
CT noted left acute minimally displaced fracture of the greater trochanteric hip.
Orthopedic recc nonoperative treatment
Cont PT OT
Cont Oxy 5 mg every 4 hours (printed prescription and placed on the chart).
brand manager for rehab discharge disposition. Patient medically stable for discharge.
# Hypotension, asymptomatic (on 08/29), Resolved
Due to high dose narcotic, tolerating lower dose
No need for intervention
# Cellulitis bilateral lower extremity L > R
Continue oral Keflex but pretty close to finish course.
# Fall versus syncope
Discontinued cardiac monitoring
Cardio consult appreciated.
# Chronic systolic diastolic CHF
Last echocardiogram in April showed EF 40 to 45% and stage I diastolic dysfunction
Repeated echo reviewed.
Not on diuretics currently.
Cardio eval appreciated
# Paroxysmal A-fib
Not on rate control agents
On anticoagulation Eliquis
Discontinue cardiac monitoring
# COPD
On Spiriva and Striverdi
Albuterol as needed
# Acute diarrhea, Resolved
Negative C. difficile
No norovirus or Shiga toxin
Salmonella Campylobacter Shigella negative
# Mild Hyponatremia
Continue fluid restriction
# Anemia
Hemoglobin 12.3 today
Continue to monitor
# Depression/anxiety
Continue escitalopram 10 mg p.o. nightly
Continue trazodone 50 mg p.o. nightly
# BPH:
Continue Flomax 0.4 mg daily
# Alcohol use disorder
No withdrawal
Discontinue MSA protocol since no need for.
Discontinue thiamine and folate
# Nicotine use disorder
Continue nicotine patch
DVT prophylaxis: Cont Xarelto and start SCDs
CODE STATUS: Full code
Anticipated Discharge: Within 24 hours
Subjective/Interval History
-
Date of Service: September 05, 2023
Objective Data
-
Vital Signs:
Vital Signs
Temp Pulse Resp BP Pulse Ox
36.3 C 61 16 133/62 94
09/05/23 07:00 09/05/23 07:32 09/05/23 07:32 09/05/23 07:00 09/05/23 07:32
I&O
09/04/23 09/05/23 09/06/23
06:59 06:59 06:59
Intake Total 1020 / 1020 1800 / 1800
Output Total 1700 / 1700 2124 / 2125
Balance -680 / -680 -325 / -325
Review of Systems
-
All other systems: Reviewed and negative
Physical Exam
-
General: Well Developed, No Apparent Distress, Comfortable and Conversant
HEENT: Normocephalic and Atraumatic
Respiratory: Clear to Auscultation and Non Labored Respirations; Negative Accessory Resp Muscle Use
Cardiac: Regular Rhythm and S1/S2
GI: Soft, Nontender, Nondistended and Normal Bowel Sounds; Negative Organomegaly
Rectal: Deferred by Provider
Musculoskeletal: No Clubbing and No Cyanosis
Neuro: Awake
Psych: Calm and Intact Judgement/Insight (somewhat)
Data Reviewed
-
CT Scan: Report Reviewed by me
Labs: Labs Reviewed by me
--- NOTE | 2023-09-05 10:56 | CM ---
CM spoke with [facility] they will attempt to accept patient if auth approved. CM called to [employer] and was again updated that the case was pending. MICHELLE spoke with account group supervisor who is attempting to reach liaison for further advocacy. CM will continue to
follow for discharge planning needs.
Plan; SNF pending auth
--- NOTE | 2023-09-05 10:58 | WOUNDNOTE ---
[facility] (MEDIAL ANTERIOR)
--- NOTE | 2023-09-05 11:03 | WOUNDNOTE ---
WOC RN Note: Patient's L medial lower calf small ulcer healed. LE edema decreased. Blanchable red area (bruise?) noted on his L upper medial olmstead. Patient stated he thinks it's from the Jose wrap. Silicone border foam dressing applied for padding.
Lotrimin applied to foot/toes. New non woven 2x2 gauze pads placed between toes to protect from his long toenails. No toe ulcers noted. Skin on heels and sacrum intact. Air chair cushion in place. Patient stood during sacral assessment. Appetite is
good. Updated Dr. Garcia via [employer] text re: L medial upper olmstead bruise and requested change in compression from Jose wraps to Tubigrip. Await response. Care plan to be updated. Plan is [facility] when discharged. Reinstructed patient to have
economic research analyst cut his toenails at SNF (in the discharge instructions). Will follow as needed.
[2023-09-05] MEDS: XARELTO 20 MG PO (17:48)
[2023-09-05] MEDS: TYLENOL 650 MG PO (18:25)
[2023-09-05] MEDS: DESYREL 50 MG PO (21:43)
[2023-09-05] MEDS: LEXAPRO 10 MG PO (21:43)
[2023-09-05] MEDS: MELATONIN 5 MG PO (21:43)
[2023-09-06 06:00] VITALS: BMI 20.8
[2023-09-06] MEDS: STRIVERDI RESPIMAT 2 PUFF INH (06:07)
[2023-09-06] MEDS: SPIRIVA RESPIMAT 2.5 MCG 2 PUFF INH (06:07)
[2023-09-06 07:00] VITALS: BP 123/57
--- NOTE | 2023-09-06 08:46 | CM ---
Addendum entered by Maite Sifuentes 09/06/23 11:43:
Abigail called with update from [facility]. Patient approved 09/05-09/18 next review date is 09/18. Auth # [id number] fax clinical update to /CM from [facility] is [phone]. CM updated Michael at [facility] and patient daughter/. ambulance
transport forms completed and on chart. Patient completed IMM and signed form placed on chart. Patient physician updated and in agreement with plan for discharge. Please [phone]. CM will continue to follow for discharge planning
needs.
Plan; discharge to SNF today. [facility]
Original Note:
Per [employer] civil rights representative now patient case has been sent to the medical billing associate. CM will continue to call [employer] and update family as well as patient and physician. CM sent update to [facility] building and grounds supervisor requesting assistance with authorization.
[2023-09-06] MEDS: FLOMAX 0.4 MG PO (08:58)
[2023-09-06] MEDS: ROXICODONE 5 MG PO (08:58)
[2023-09-06] MEDS: VITAMIN D3 (cholecalciferol) 25 MCG PO (08:58)
[2023-09-06] MEDS: KEFLEX 500 MG PO ×2 (08:58→12:22)
[2023-09-06] MEDS: NICODERM TRANSDERMAL 14 MG TRANSDERM (08:58)
[2023-09-06] MEDS: HYDROPHOR 1 APPLIC TOPICAL (09:00)
[2023-09-06] MEDS: LOTRIMIN 1% CREAM 1 APPLIC TOPICAL (09:00)
[2023-09-06 11:00] VITALS: BP 100/47; BP 79/43; BP 96/46; PULSE 63; PULSE 64; PULSE 66
--- NOTE | 2023-09-06 11:02 | W.PN.HOSP.TC ---
Addendum entered and electronically signed by Stefany Garcia MD 09/06/23 13:30:
total DC time 36 min
Original Note:
Today's Communication/Plan
-
Pending SNF
Assessment / Plan
Assessment / Plan
A/P:
# Left hip fracture
CT noted left acute minimally displaced fracture of the greater trochanteric hip.
Orthopedic recc nonoperative treatment
Cont PT OT
Cont Oxy 5 mg every 4 hours (printed prescription and placed on the chart).
manager database for rehab discharge disposition. Patient medically stable for discharge.
# Hypotension, asymptomatic (on 08/29), Resolved
Due to high dose narcotic, tolerating lower dose
No need for intervention
# Cellulitis bilateral lower extremity L > R
Continue oral Keflex total 14 days
# Fall versus syncope
Discontinued cardiac monitoring
Cardio consult appreciated.
# Chronic systolic diastolic CHF
Last echocardiogram in April showed EF 40 to 45% and stage I diastolic dysfunction
Repeated echo reviewed.
Not on diuretics currently.
Cardio eval appreciated
# Paroxysmal A-fib
Not on rate control agents
On anticoagulation Eliquis
Discontinue cardiac monitoring
# COPD
On Spiriva and Striverdi
Albuterol as needed
# Acute diarrhea, Resolved
Negative C. difficile
No norovirus or Shiga toxin
Salmonella Campylobacter Shigella negative
# Mild Hyponatremia
Continue fluid restriction
# Anemia
Hemoglobin 12.3 today
Continue to monitor
# Depression/anxiety
Continue escitalopram 10 mg p.o. nightly
Continue trazodone 50 mg p.o. nightly
# BPH:
Continue Flomax 0.4 mg daily
# Alcohol use disorder
No withdrawal
Discontinue MSA protocol since no need for.
Discontinue thiamine and folate
# Nicotine use disorder
Continue nicotine patch
DVT prophylaxis: Cont Xarelto and start SCDs
CODE STATUS: Full code
Anticipated Discharge: 24 - 48 hours
Subjective/Interval History
-
Date of Service: September 06, 2023
Objective Data
-
Vital Signs:
Vital Signs
Temp Pulse Resp BP Pulse Ox
36.6 C 58 16 123/57 96
09/06/23 07:00 09/06/23 07:00 09/06/23 07:00 09/06/23 07:00 09/06/23 07:00
I&O
09/05/23 09/06/23 09/07/23
06:59 06:59 06:59
Intake Total 1800 / 1800 1520 / 1520
Output Total 2124 / 2124
Balance -325 / -325 -500 / -500
Review of Systems
-
All other systems: Reviewed and negative
Physical Exam
-
General: Well Developed, No Apparent Distress, Comfortable and Conversant
HEENT: Normocephalic and Atraumatic
Respiratory: Clear to Auscultation and Non Labored Respirations; Negative Accessory Resp Muscle Use
Cardiac: Regular Rhythm and S1/S2
GI: Soft, Nontender, Nondistended and Normal Bowel Sounds; Negative Organomegaly
Rectal: Deferred by Provider
Musculoskeletal: No Clubbing and No Cyanosis
Neuro: Awake
Psych: Calm and Intact Judgement/Insight (somewhat)
Data Reviewed
-
CT Scan: Report Reviewed by me
Labs: Labs Reviewed by me
[2023-09-06 12:55] VITALS: BP 95/50
--- NOTE | 2023-09-06 13:14 | W.DCSUMMARY ---
Discharge Summary
Discharge Data
Date of Admission: 08/25/23
Date of Discharge: 09/06/23
-
Pending Results: No
Hospital Course
Principal Diagnosis:
Mechanical fall with minimal displaced left hip fracture.
Cellulitis bilateral lower extremity L > R
Chronic Diagnoses:�
Chronic systolic diastolic heart failure, EF 40 to 45% and stage I diastolic dysfunction
Paroxysmal atrial fibrillation
Chronic obstructive pulmonary disease
Depression/anxiety on escitalopram 10 mg p.o. nightly
Benign prostate hypertrophy
Alcohol use disorder
Nicotine use disorder
Consultations:�
Orthopedic
Cardiology
Procedures:�
None
Clinical course:�
This is a 87-year-old male, with past medical history as stated above, who presented with weakness and mechanical fall.
Problem 1:
Mechanical fall with minimal displaced left hip fracture.
His CT noted left acute minimally displaced fracture of the greater trochanteric hip.
Patient was seen by orthopedic, and was recommended nonoperative/conservative management.
He was discharged to SNF for PT OT recommendation.
He can continue with low-dose oxycodone 5 mg as needed for pain control
Problem 2:
Hypotension, asymptomatic (on 08/29), Resolved.
This was felt likely due to high-dose narcotic which was stopped.
Low-dose narcotic was continued as needed for pain control, which he tolerated.
Problem 3:
Cellulitis bilateral lower extremity L > R
He can continue with Keflex for total 14 days.
As for the rest of his medical problems, they were stable during his hospital stay.
Discharge Plan
-
Patient Disposition: Senior Living/SNF
Discharge Diagnosis/Procedures: Left hip fracture.
Cellulitis L>R.
Fall/syncope.
Chronic systolic diastolic congestive heart failure.
Paroxysmal atrial fibrillation.
Chronic obstructive pulmonary disease.
Hyponatremia.
Condition: Fair
Diet: Low Cholesterol and Restrict fluids to 64 oz
Activity: Other activity
Additional Activity: Left hip may bear weight as tolerated on a walker. No active or passive abduction or abduction.
Blood Work: Please PCP to order CBC, BMP within 1 week
Wound Care: Wound Care Instructions:
LLE small wound-clean with saline or soap and water, silicone border foam, change every 3 days and as needed for loosened dressing.
Vaseline or Aquaphor ointment to dry skin le's daily.
Cotton or gauze between toes.
Lotrimin cream to feet/toes twice a day.
Bilateral knee high Jose wraps as tolerated; reapply every morning.
Elevate heels off bed with pillow/s and/or air chair cushion.
Make appointment for toenail cutting with a welder setter resistance machine.
Follow up with Wound care center if needed, .
Activity Restrictions/Additional Instructions:
09/05/23 Use Tubigrip compression stockinet as tolerated instead of Jose wraps; remove at bedtime; reapply every morning.
orthopedic followup in 2-3 weeks for repeat x-rays and clinical exam.
Referrals:
Haroldo Phillip PA-C [Specified Professional Personl] - in two to three weeks
Zeina Hackett, [Family Provider] - in less than 1 week
Janet Rodriguez PA-C [Specified Professional Personl] - 09/26/23 2:00 pm (You have a follow up visit with Dr. Goss's Janet PAINTING, at the [place] office. Please call with questions. )
Additional Discharge Medication Instructions: Continue Keflex for 6 more days
Prescriptions:
New
oxycodone 5 mg Tablet
5 mg PO Q4HPRN PRN (Reason: moderate pain) Qty: 4 0RF
cephalexin 500 mg Capsule
500 mg PO QID 6 Days Qty: 24 0RF
Continued
albuterol sulfate 90 mcg/actuation Hfa Aerosol Inhaler
2 puff INHALATION R Q6HPRN PRN (Reason: sob/wheezing)
multivitamin Tablet
1 tab PO DAILYPRN PRN (Reason: supplement)
ipratropium-albuterol 0.5 mg-3 mg(2.5 mg base)/3 mL solution for nebulization
3 ml INHALATION R Q6HPRN PRN (Reason: sob/wheezing)
trazodone 50 mg tablet
50 mg PO HS
escitalopram oxalate 10 mg tablet
10 mg PO HS
cholecalciferol (vitamin D3) [Vitamin D3] 25 mcg (1,000 unit) Tablet
25 mcg PO DAILY
Anoro Ellipta 62.5-25 mcg/actuation blister with device
1 inh INHALATION R HS
Xarelto 20 mg Tablet
20 mg PO QPM 30 Days Qty: 30 0RF
tamsulosin 0.4 mg Capsule
0.4 mg PO DAILY 30 Days Qty: 30 0RF
Discharge Orders:
Discharge Patient (As Directed); Ordered 09/06/23
Ordered By: Stefany Garcia
Discharge Date and Time
Discharge Date/Time: 09/06/23 13:05
Print Language: [id number]
== END 2023-09-06 13:05 | DRG 543 ==
LOC: 3 WEST ACU 18:37
PROVIDERS: Hospitalist; ADMITTING PHYSICIAN Internal Medicine; CONSULT PHYSICIAN Specialist; EMERGENCY PHYSICIAN Emergency Medicine; FAMILY PHYSICIAN Internal Medicine; OTHER PHYSICIAN Nuclear Medicine Nuclear Cardiology
DX: M80.052A Age-related osteoporosis with current pathological fracture, left femur, initial encounter for fracture (principal); E87.1 Hypo-osmolality and hyponatremia; L03.116 Cellulitis of left lower limb; L03.115 Cellulitis of right lower limb; I42.9 Cardiomyopathy, unspecified; I50.22 Chronic systolic (congestive) heart failure; I11.0 Hypertensive heart disease with heart failure; R29.6 Repeated falls; W01.10XA Fall on same level from slipping, tripping and stumbling with subsequent striking against unspecified object, initial encounter; Y93.9 Activity, unspecified; Y92.9 Unspecified place or not applicable; D64.9 Anemia, unspecified; F17.210 Nicotine dependence, cigarettes, uncomplicated; I25.10 Atherosclerotic heart disease of native coronary artery without angina pectoris; I95.1 Orthostatic hypotension; I34.0 Nonrheumatic mitral (valve) insufficiency; N40.0 Benign prostatic hyperplasia without lower urinary tract symptoms; F32.A Depression, unspecified; R19.7 Diarrhea, unspecified; F41.9 Anxiety disorder, unspecified; J44.9 Chronic obstructive pulmonary disease, unspecified; E78.5 Hyperlipidemia, unspecified; I48.0 Paroxysmal atrial fibrillation; K21.9 Gastro-esophageal reflux disease without esophagitis; I25.2 Old myocardial infarction; Z87.01 Personal history of pneumonia (recurrent); Z79.01 Long term (current) use of anticoagulants
CPT/HCPCS: 70450; 72125; 72192; 73502; 80048; 80053; 81003; 83735; 84443; 85025; 85027; 87045; 87046; 87324; 87427; 87449; 87798; 93005; 93306; 93970; 94640; 96374; 96375; 97110; 97116; 97163; 97167; 97530; 97535; 99285

== ENCOUNTER → 2023-09-13 11:47 | Outpatient (REF) | payer OTHER, SELFPAY ==
[2023-09-13 13:20] LABS: Blood Urea Nitrogen 18 mg/dl (9-20); Calcium 8.8 mg/dl (8.4-10.2); Carbon Dioxide 27 mmol/L (22-30); Chloride 101 mmol/L (98-107); Glucose 80 mg/dl (70-99); Magnesium 2.2 mg/dl (1.6-2.3); Potassium 4.4 mmol/L (3.5-5.1); Sodium 136 mmol/L (135-145); eGFR > 60.00
[2023-09-13 13:27] LABS: Hematocrit 37.2 % (39.0-52.0); Hemoglobin 12.5 g/dL (13.0-18.0); Mean Corp Hgb Conc. 33.6 g/dL (33.0-37.0); Mean Corpuscular Hgb 31.8 pg (27.0-31.0); Mean Corpuscular Volume 94.7 fL (80.0-94.0); Mean Platelet Volume 9.6 fL (7.4-10.4); Platelet Count 275 10^3/uL (130-400); Red Blood Cell Count 3.93 10^6/uL (4.70-6.10); Red Cell Dist. Width 15.3 % (11.5-14.5); White Blood Cell Count 4.4 10^3/uL (4.8-10.8)
== END ==
LOC: OLABN 11:47
PROVIDERS: ATTENDING PHYSICIAN Student in an Organized Health Care Education/Training Program
DX: I10 Essential (primary) hypertension (principal); E87.5 Hyperkalemia; E61.2 Magnesium deficiency
CPT/HCPCS: 80048; 83735; 85027

== ENCOUNTER → 2024-07-14 12:04 | Outpatient (REF) | payer OTHER, SELFPAY ==
[2024-07-14 13:33] LABS: Blood Urea Nitrogen 17 mg/dl (9-20); Calcium 9.6 mg/dl (8.4-10.2); Carbon Dioxide 26 mmol/L (22-30); Chloride 105 mmol/L (98-107); Glucose 91 mg/dl (70-99); Potassium 4.6 mmol/L (3.5-5.1); Sodium 138 mmol/L (135-145); eGFR > 60.00
== END ==
LOC: RAD 12:04
PROVIDERS: ATTENDING PHYSICIAN Surgery Vascular Surgery; FAMILY PHYSICIAN Internal Medicine
DX: I77.9 Disorder of arteries and arterioles, unspecified (principal)
CPT/HCPCS: 36415; 75635; 80048; Q9967

== ENCOUNTER → 2024-09-08 11:14 | Outpatient (REF) | payer OTHER, SELFPAY | LOC: HWRCS 11:14 | PROVIDERS: ATTENDING PHYSICIAN Nuclear Medicine Nuclear Cardiology; FAMILY PHYSICIAN Internal Medicine | DX: I48.0 Paroxysmal atrial fibrillation (principal); I25.2 Old myocardial infarction; I42.8 Other cardiomyopathies | CPT/HCPCS: 93306 ==